=== PATIENT | female | born 1960 | race Caucasian/White ===

== ENCOUNTER 2017-06-14 10:36 | Emergency (ER) | payer OTHER ==
[2017-06-14 10:54] VITALS: BP 130/72
[2017-06-14 12:18] LABS: BASOPHILS # (AUTO) 0.1 10^3/uL (0.0-0.1); BASOPHILS % (AUTO) 0.6 %; EOSINOPHILS # (AUTO) 0.1 10^3/uL (0.0-0.7); EOSINOPHILS % (AUTO) 0.5 %; HCT - HEMATOCRIT 42.2 % (37.0-47.0); HGB - HEMOGLOBIN 13.8 g/dL (12.0-16.0); LYMPHOCYTES # (AUTO) 2.4 10^3/uL (1.5-3.5); LYMPHOCYTES % (AUTO) 14.7 %; MEAN CORPUSCULAR HGB CONC 32.8 g/dL (32.0-36.0); MEAN CORPUSCULAR VOLUME 82.4 fL (81.0-99.0); MEAN PLATELET VOLUME 8.5 fL (7.9-10.8); MONOCYTES # (AUTO) 1.1 10^3/uL (0.0-1.0); MONOCYTES % (AUTO) 6.4 %; NEUTROPHILS # (AUTO) 12.7 10^3/uL (1.5-6.6); NEUTROPHILS % (AUTO) 77.8 %; RED BLOOD COUNT 5.12 10^6/uL (4.20-5.40); RED CELL DISTRIBUTION WIDTH 14.5 % (12.0-15.0); UNCORRECTED WHITE BLOOD COUNT 16.4 x10^3/uL; WHITE BLOOD COUNT 16.4 x10^3/uL (4.8-10.8)
[2017-06-14 12:33] LABS: ALBUMIN/GLOBULIN RATIO 0.9 (1.0-2.2); BILIRUBIN,TOTAL 0.6 mg/dL (0.2-1.0); CALCIUM 9.1 mg/dL (8.5-10.3); CREATININE 0.7 mg/dL (0.4-1.0); POTASSIUM 3.9 mmol/L (3.5-5.0)
[2017-06-14] MEDS ORDERED: ceFAZolin 1 GM VIAL IM STA (12:35)
--- NOTE | 2017-06-14 12:37 | ED Physician Documentation ---
History of Present Illness - Stated complaint Stated Complaint: LT LEG PX/REDNESS - Chief complaint Chief Complaint: Ext Problem - History obtained from History obtained from: Patient - History of Present Illness Timing: Other (56-year-old woman with long-standing diabetes developed redness and swelling and pain of the left foot, ankle and calf overnight with generalized malaise and some chills but no measured fevers. No nausea, vomiting , shortness of breath, cough, or chest pain.) Review of Systems Constitutional: reports: Chills, Myalgias. denies: Fever Cardiac: denies: Chest pain / pressure, Palpitations Respiratory: denies: Dyspnea, Cough PD PAST MEDICAL HISTORY - Past Medical History Past Medical History: Yes Endocrine/Autoimmune: Type 2 diabetes : Other Other Past Medical History: Neuropathy, Kidney infections, L inguinal hernia, R large cyst on ovary - Past Surgical History Past Surgical History: Yes HEENT: Cataracts, Tonsil/Adenoidectomy - Present Medications Home Medications: Ambulatory Orders Medication Instructions Recorded Confirmed Amitriptyline [Elavil] 25 mg PO DAILY 06/14/17 06/14/17 Amox/Clav 875/125 [Augmentin] 1 each PO Q12H #20 tablet 06/14/17 Ascorbic Acid [Vitamin C] 1,000 mg PO DAILY 06/14/17 06/14/17 Aspirin 81 mg PO DAILY 06/14/17 06/14/17 Insulin Aspart [NovoLOG] 16 - 30 unit SQ TID 06/14/17 06/14/17 Insulin Glargine [Lantus Solostar] 84 unit SQ BID 06/14/17 06/14/17 Iron Pill 06/14/17 [place]-3/Dha/Epa/Fish Oil [Fish Oil 1 tab PO DAILY 06/14/17 06/14/17 1,000 mg Softgel] Omeprazole 40 mg PO DAILY 06/14/17 06/14/17 Senna [Senokot] 8.6 mg PO ONCE 06/14/17 06/14/17 Simvastatin 1 tab PO DAILY 06/14/17 06/14/17 Telmisartan/Hydrochlorothiazid 1 each PO DAILY 06/14/17 06/14/17 [Micardis Hct 80-25 mg Tablet] metFORMIN [Glucophage] 2,000 mg PO DAILY 06/14/17 06/14/17 - Allergies Allergies/Adverse Reactions: Allergies Allergy/AdvReac Type Severity Reaction Status Date / Time No Known Drug Allergies Allergy Verified 06/14/17 10:54 - Social History Does the pt smoke?: No Smoking Status: Never smoker Does the pt drink ETOH?: No Does the pt have substance abuse?: No - Immunizations Immunizations are current?: Yes - POLST Patient has POLST: No PD ED PE NORMAL - Vitals Vital signs reviewed: Yes - General General: Alert and oriented X 3, No acute distress - Cardiac Cardiac: RRR, No murmur - Respiratory Respiratory: No respiratory distress, Clear bilaterally - Extremities Extremities: Other (She has cellulitis that seems to be emanating from the top of the foot near the toes to mid calf. There is some tenderness but not terribly so. There is no pain out of proportion to exam or crepitance. There is a slightly foul smell from the toes but no open areas or wounds.) - Neuro Neuro: Alert and oriented X 3, Normal speech Results - Vitals Vitals: Vital Signs - 24 hr 06/14/17 10:49 Temperature 36.6 C Heart Rate 99 Respiratory 16 Rate Blood Pressure 130/72 O2 Saturation 98 Oxygen O2 Source Room air - Labs Labs: Laboratory Tests 06/14/17 06/14/17 06/14/17 12:08 12:14 12:14 WBC 16.4 H RBC 5.12 Hgb 13.8 Hct 42.2 MCV 82.4 MCH 27.0 MCHC 32.8 RDW 14.5 Plt Count 196 MPV 8.5 Neut # 12.7 H Lymph # 2.4 [place] # 1.1 H Eos # 0.1 Baso # 0.1 Absolute Nucleated RBC 0.00 Nucleated RBC % 0.0 Sodium 137 Potassium 3.9 Chloride 92 L Carbon Dioxide 31 Anion Gap 14.0 H BUN 15 Creatinine 0.7 Estimated GFR (MDRD) 87 L Glucose 202 H POC Whole Bld Glucose 158 H Calcium 9.1 Total Bilirubin 0.6 AST 15 ALT 29 Alkaline Phosphatase 87 Total Protein 7.0 Albumin 3.4 Globulin 3.6 Albumin/Globulin Ratio 0.9 L Lipase 19 L PD MEDICAL DECISION MAKING - ED course ED course: 56-year-old woman with cellulitis of the left leg. The examination is inconsistent with DVT. She was given 2 g of Ancef IM here and a prescription for Augmentin. The patient and family were counseled as to the diagnosis and need for follow- up. I counseled the patient with regard to signs and symptoms that would necessitate an urgent reevaluation in the emergency department. They understand they are welcome to return at any time if worse or if not improving as expected. This document was made in part using voice recognition software. While efforts are made to proofread this documents, sound alike and grammatical errors may occur. Departure - Departure Disposition: 01 Home, Self Care Clinical Impression: Cellulitis Qualifiers: Site of cellulitis: extremity Site of cellulitis of extremity: lower extremity Laterality: left Qualified Code(s): L03.116 - Cellulitis of left lower limb Condition: Good Record reviewed to determine appropriate education?: Yes Instructions: Cellulitis Dc Prescriptions: Amox/Clav 875/125 [Augmentin] 1 each PO Q12H #20 tablet Comments: Follow-up with your doctor in 2 days, return for high fevers, if worse or not better.
[2017-06-14] MEDS ORDERED: ceFAZolin 1 GM VIAL ONE (12:45)
[2017-06-14] MEDS ORDERED: WATER FOR INJECTION,STERILE 10 ML ONE (12:45)
== END 2017-06-14 12:52 | disposition home or self-care (01) ==
LOC: ED 10:36
DX: L03.116 Cellulitis of left lower limb (principal); E11.610 Type 2 diabetes mellitus with diabetic neuropathic arthropathy; Z79.4 Long term (current) use of insulin; Z79.82 Long term (current) use of aspirin
CPT/HCPCS: 36415; 80053; 83690; 85025; 96372; 99283

== ENCOUNTER 2017-06-16 15:39 | Inpatient (IN) | payer OTHER ==
[2017-06-16] MEDS ORDERED: SODIUM CHLORIDE 0.9% 1,000 ML IV ONE (15:52)
[2017-06-16] MEDS ORDERED: VANCOMYCIN INJ 2 GM in SODIUM CHLORIDE 0.9% 500 ML IV STA (15:53)
--- NOTE | 2017-06-16 15:54 | ED Physician Documentation ---
History of Present Illness - Stated complaint Stated Complaint: FOOT PX - Chief complaint Chief Complaint: Ext Problem - History obtained from History obtained from: Patient - History of Present Illness Timing: Other (This is a long-standing diabetic who I saw 2 days ago for left leg cellulitis. She was administered Ancef here and Augmentin to go which she has been taking with minimal to no side effects. Since then her cellulitis has progressed and she is gotten more of a fluid collection on the top of the left foot. She had chills last night.) Review of Systems Ten Systems: 10 systems reviewed and negative Constitutional: reports: Chills. denies: Fever Throat: reports: Reviewed and negative Cardiac: reports: Reviewed and negative Respiratory: reports: Reviewed and negative PD PAST MEDICAL HISTORY - Past Medical History Past Medical History: Yes Endocrine/Autoimmune: Type 2 diabetes : Other - Past Surgical History Past Surgical History: Yes HEENT: Cataracts, Tonsil/Adenoidectomy - Present Medications Home Medications: Ambulatory Orders Medication Instructions Recorded Confirmed Amitriptyline [Elavil] 25 mg PO DAILY 06/14/17 06/14/17 Amox/Clav 875/125 [Augmentin] 1 each PO Q12H #20 tablet 06/14/17 Ascorbic Acid [Vitamin C] 1,000 mg PO DAILY 06/14/17 06/16/17 Aspirin 81 mg PO DAILY 06/14/17 06/16/17 Insulin Aspart [NovoLOG] 16 - 30 unit SQ TID 06/14/17 06/16/17 Insulin Glargine [Lantus Solostar] 84 unit SQ BID 06/14/17 06/16/17 Iron Pill 06/14/17 [place]-3/Dha/Epa/Fish Oil [Fish Oil 1 tab PO DAILY 06/14/17 06/16/17 1,000 mg Softgel] Omeprazole 40 mg PO DAILY 06/14/17 06/16/17 Senna [Senokot] 8.6 mg PO ONCE 06/14/17 06/16/17 Simvastatin 1 tab PO DAILY 06/14/17 06/16/17 Telmisartan/Hydrochlorothiazid 1 each PO DAILY 06/14/17 06/16/17 [Micardis Hct 80-25 mg Tablet] metFORMIN [Glucophage] 2,000 mg PO DAILY 06/14/17 06/16/17 - Allergies Allergies/Adverse Reactions: Allergies Allergy/AdvReac Type Severity Reaction Status Date / Time No Known Drug Allergies Allergy Verified 06/16/17 15:45 - Social History Does the pt smoke?: No Smoking Status: Never smoker Does the pt drink ETOH?: No Does the pt have substance abuse?: No - Family History Family history: reports: Non contributory - Immunizations Immunizations are current?: Yes - POLST Patient has POLST: No PD ED PE NORMAL - Vitals Vital signs reviewed: Yes (Tachycardic, hypertensive) - General General: Alert and oriented X 3, No acute distress - HEENT HEENT: PERRL, EOMI - Neck Neck: Supple, no meningeal sign, No bony TTP - Cardiac Cardiac: RRR, No murmur - Respiratory Respiratory: No respiratory distress, Clear bilaterally - Abdomen Abdomen: Soft, Non tender - Extremities Extremities: Other (The redness of the calf is actually improved somewhat, but the redness on the top of the left foot is much worse and there is now a fluid collection that is extensive between the first and second toes of the left foot. ) - Neuro Neuro: Alert and oriented X 3, Normal speech - Psych Psych: Normal mood, Normal affect Results - Vitals Vitals: Vital Signs - 24 hr 06/16/17 15:44 Temperature 36.7 C Heart Rate 117 H Respiratory 18 Rate Blood Pressure 155/70 H O2 Saturation 96 Oxygen O2 Source Room air Procedures - Abscess I&D (location) Left foot Preparation: Chlorhexadine Incision: Incised with scalpel, Culture obtained Other: Pt tolerated well, Dressing applied PD MEDICAL DECISION MAKING - ED course ED course: 56-year-old woman with bullous cellulitis, bullae between the first and second toes was incised for a culture. She is placed on vancomycin and I spoke with Dr. Pina for admission given that she has failed outpatient treatments and is still tachycardic, we spoke at 3:55 PM. Departure - Departure Disposition: 66 [facility] DC/Xfer Clinical Impression: Cellulitis Qualifiers: Site of cellulitis: extremity Site of cellulitis of extremity: lower extremity Laterality: left Qualified Code(s): L03.116 - Cellulitis of left lower limb Condition: Stable
[2017-06-16 16:24] LABS: BASOPHILS # (AUTO) 0.1 10^3/uL (0.0-0.1); BASOPHILS % (AUTO) 0.5 %; EOSINOPHILS # (AUTO) 0.2 10^3/uL (0.0-0.7); EOSINOPHILS % (AUTO) 1.3 %; HCT - HEMATOCRIT 39.9 % (37.0-47.0); HGB - HEMOGLOBIN 12.7 g/dL (12.0-16.0); LYMPHOCYTES % (AUTO) 13.2 %; MEAN CORPUSCULAR HEMOGLOBIN 26.8 pg (27.0-31.0); MEAN CORPUSCULAR HGB CONC 31.9 g/dL (32.0-36.0); MEAN CORPUSCULAR VOLUME 83.9 fL (81.0-99.0); MEAN PLATELET VOLUME 8.4 fL (7.9-10.8); MONOCYTES # (AUTO) 1.2 10^3/uL (0.0-1.0); MONOCYTES % (AUTO) 7.9 %; NEUTROPHILS # (AUTO) 11.7 10^3/uL (1.5-6.6); NEUTROPHILS % (AUTO) 77.1 %; RED BLOOD COUNT 4.75 10^6/uL (4.20-5.40); RED CELL DISTRIBUTION WIDTH 14.4 % (12.0-15.0); UNCORRECTED WHITE BLOOD COUNT 15.2 x10^3/uL; WHITE BLOOD COUNT 15.2 x10^3/uL (4.8-10.8)
[2017-06-16] MEDS ORDERED: ONDANSETRON ODT 4 MG TABLET TL PRN (16:31)
[2017-06-16] MEDS ORDERED: TEMAZEPAM 15 MG CAPSULE PO PRN (16:31)
[2017-06-16] MEDS ORDERED: ACETAMINOPHEN 325 MG TABLET PO PRN (16:31)
[2017-06-16] MEDS ORDERED: HYDROcod/ACETAM 5/325 MG TABLET PO PRN (16:31)
[2017-06-16] MEDS ORDERED: SODIUM CHLORIDE FLUSH 0.9% 10 ML SYRINGE IVP PRN (16:31)
[2017-06-16 16:37] LABS: ALBUMIN/GLOBULIN RATIO 0.8 (1.0-2.2); BILIRUBIN,TOTAL 0.4 mg/dL (0.2-1.0); CALCIUM 8.1 mg/dL (8.5-10.3); CREATININE 0.8 mg/dL (0.4-1.0); POTASSIUM 3.8 mmol/L (3.5-5.0); TOTAL PROTEIN 6.6 g/dL (6.7-8.2)
[2017-06-16] MEDS ORDERED: SENNA 8.6 MG TABLET PO SCH (17:00)
[2017-06-16] MEDS ORDERED: INSULIN ASPART 300 UNIT/3 ML PEN SUBQ SCH (17:00)
--- NOTE | 2017-06-16 19:06 | HISTORY & PHYSICAL EXAMINATION ---
Chief Complaint - Chief Complaint Chief Complaint: LLE cellulitis History of Present Illness - Admitted From Admitted From:: ED - History Obtained From Records Reviewed: yes History obtained from: chart review, patient Exam Limitations: none - History of Present Illness HPI Comment/Other: Nicci Otto is a morbidly-obese 56 year old female who suffers from long- standing diabetes. She most recently was seen in the ED 2 days ago for left leg cellulitis. She was administered Ancef and Augmentin to go which she has been taking with minimal to no side effects. Since then her cellulitis has progressed and she is gotten more of a fluid collection on the top of the left foot. She admits to chills, nausea with vomiting, headache, generalized malaise and diarrhea that developed soon after returning home from the ED the first time. Once in the ED the MD lanced the skin on top of her left foot between the first and second toe. A wound culture was sent to lab and is pending. She was placed on vancomycin IV and is admitted to the medical floor for further IV therapy, blood sugar control, and prevention of wound progression. History - Past Medical History Cardiovascular: reports: None, Peripheral Vascular Disease, Murmur Neuro: reports: Headache/migraine, Peripheral neuropathy Endocrine/Autoimmune: reports: Type 2 diabetes [employer]: reports: Ovarian cysts (Plan for surgery in July-pending HgA1C) : reports: Other (stable left inguinal hernia) HEENT: reports: Chronic sinusitis, Other (acute fluid accumulation left greater than right tympanic membrane.) Psych: reports: None Musculoskeletal: reports: Fatigue Derm: reports: None MRSA Hx?: No - Past Surgical History General: reports: Colonoscopy, EGD HEENT: reports: Cataracts, Tonsil/Adenoidectomy - Family & Social History Family History: Mother: Alive and Well, Cancer, Diabetes, Type 2 (4 living brothers ALL with diabetes), Father: , CAD, Brother: Diabetes, Type 2 Living arrangement: At home Living Situation: With spouse/s.o. 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 - Substance History Use: Uses substance without health or social issues: NONE Abuse: Recurrent use of substance despite neg consequences: NONE Dependence: Experiences withdrawal or developed tolerances: NONE - POLST Patient has POLST: No POLST Status: Full Code Meds/Allgy - Home Medications Home Medications: Ambulatory Orders Medication Instructions Recorded Confirmed Amitriptyline [Elavil] 25 mg PO DAILY 06/14/17 06/16/17 Amox/Clav 875/125 [Augmentin] 1 each PO Q12H #20 tablet 06/14/17 06/16/17 Ascorbic Acid [Vitamin C] 1,000 mg PO DAILY 06/14/17 06/16/17 Aspirin 81 mg PO DAILY 06/14/17 06/16/17 Insulin Aspart [NovoLOG] 16 - 30 unit SQ TID 06/14/17 06/16/17 Insulin Glargine [Lantus Solostar] 84 unit SQ BID 06/14/17 06/16/17 Iron Pill 06/14/17 [place]-3/Dha/Epa/Fish Oil [Fish Oil 1 tab PO DAILY 06/14/17 06/16/17 1,000 mg Softgel] Omeprazole 40 mg PO DAILY 06/14/17 06/16/17 Senna [Senokot] 8.6 mg PO ONCE 06/14/17 06/16/17 Simvastatin 1 tab PO DAILY 06/14/17 06/16/17 Telmisartan/Hydrochlorothiazid 1 each PO DAILY 06/14/17 06/16/17 [Micardis Hct 80-25 mg Tablet] metFORMIN [Glucophage] 2,000 mg PO DAILY 06/14/17 06/16/17 - Allergies Allergies/Adverse Reactions: Allergies Allergy/AdvReac Type Severity Reaction Status Date / Time No Known Drug Allergies Allergy Verified 06/16/17 15:45 Review of Systems - Constitutional Constitutional: reports: Fatigue, Fever, Chills, Malaise, Weakness, Poor appetite - Eyes Eyes: reports: Corrective lenses - Ears, Nose & Throat Ears, Nose & Throat: reports: Ear pain, Postnasal drainage, Sore throat - Gastrointestinal Gastrointestinal: reports: Abdominal distention, Diarrhea, Change in bowel habits, Nausea, Vomiting, Bloating, Poor appetite - Integumentary Integumentary: reports: Other (LLE cellulitis) - Neurological Neurological: reports: General weakness, Headache - All Other Systems All Other Systems: reports: Reviewed and negative Exam - Vital Signs Reviewed Vital Signs: Yes Vital Signs: Vital Signs x48h Temp Pulse Resp BP Pulse Ox 06/16/17 17:00 37.2 C 94 16 138/60 H 97 - Physical Exam General Appearance: positive: No acute distress, Alert Eyes Bilateral: positive: Normal inspection ENT: positive: ENT inspection nml, Pharynx nml, Dry mucous membranes, Other ( fluid noted left greater than right behind tympanic membrane using otoscope.) Neck: positive: Nml inspection, Thyroid nml Respiratory: positive: Chest non-tender, No respiratory distress, Breath sounds nml Cardiovascular: positive: Regular rate & rhythm, No gallop, Systolic murmur Peripheral Pulses: positive: 1+ Abdomen: positive: Tenderness, Hepatomegaly, Splenomegaly, Other (obese) Back: positive: Nml inspection Skin: positive: Color nml, No rash, Warm, Dry Extremities: positive: Pedal edema, Calf tenderness (left low leg), Joint swelling Neurologic/Psychiatric: positive: Oriented x3, CN's nml (2-12), Motor nml, Sensation nml, Depressed mood/affect Reflexes: Bicep (R): 4+, Bicep (L): 4+ Conclusion/Plan - Problem List (1) Cellulitis of left lower extremity Conclusion/Plan: 4 days ago patient was in her bathroom and noticed her leg to appear "sunburnt" . She has a white floor, so this really stood out to her. The next day she came to our ED, was treated with antibiotics and sent home to finish with oral antibiotics. Started having fever/chills, headache, increased LLE pain and now noticed a blister forming on the anterior aspect of foot between the largest toe and the second toe. Plan: Treat aggressively with IV antibiotics, wound culture pending, wound care consult. (2) Abscess of left foot excluding toes Conclusion/Plan: Blister like formation noted on left foot between great toe and second toes, so lanced with fluid drainage. Plan: Awaiting culture results. (3) Diabetes mellitus type 2 with complications Conclusion/Plan: Diagnosed at age 25 years. Likely related to PCOS. Sugars at home have been reported greater than 300. HgA1C is said to be ~9. Plan: Diabetes education before discharge. Monitor and control blood sugars per nursing. (4) Allergic sinusitis Conclusion/Plan: Patient complains of left ear pain that started about the same time as her chief complaint. Upon exam with otoscope, fluid is noted behind bilateral tympanic membranes. Plan: Afrin nasal spray for the next 3 days, [place] PO started for the AM. (5) History of PCOS Conclusion/Plan: Patient has had this disease since early adult sin. She notes that she has a current ovarian cyst that needs to be removed soon. She also admits to infrequent spotting related to this cyst. No pain with palpation. Plan: Monitor for signs of explosion. Control pain. Encourage activity. (6) Morbid obesity with BMI of 45.0-49.9, adult Conclusion/Plan: Patient notes that her weight has been a life long struggle. Plan: May consider dietary consult before discharge. A low carb diet has been ordered. Greater than 30 minutes was spent on this admission during [id number] exam and wound exploration. - Lab Results Lab results reviewed: Yes Fish Bones: 06/16/17 16:13 06/16/17 16:13 - Diagnostic Imaging Results Diagnostic Imaging Results: positive: Prelim report reviewed - EKG Results EKG Interpreted Independently: Yes Issues/Core Measures - Anticipated LOS Anticipated Stay Length: 2 or more midnights - DVT/VTE - Prophylaxis VTE/DVT Device ordered at admit?: No Not Ordered - Medical Reason: Contraindicated VTE/DVT Prophylaxis med ordered at admit?: Yes - Stroke - Rehab Assessment Rehab services assessment to be ordered?: No Not Ordered - Medical Reason: Not indicated - AMI - Statin at Admit Aspirin Prescribed on Admit: No Not Ordered - Medical Reason: Not indicated
[2017-06-16] MEDS: INSULIN ASPART 300 UNIT/3 ML PEN SUBQ SCH (21:54)
[2017-06-16] MEDS: INSULIN GLARGINE 300 UNIT/3 ML PEN SUBQ SCH (21:55)
[2017-06-16] MEDS: SODIUM CHLORIDE FLUSH 0.9% 10 ML SYRINGE IVP SCH (21:55)
[2017-06-16] MEDS: OXYMETAZOLINE NASAL SPRAY NAS SCH (22:41)
[2017-06-16] MEDS ORDERED: PIPERACILLIN/TAZOBACTAM 3.375 GM in SODIUM CHLORIDE 0.9% MINIBAG 100 ML IV SCH ×2 (23:00→23:30)
[2017-06-17] MEDS: SODIUM CHLORIDE 0.9% 1,000 ML IV SCH ×2 (00:02→10:42)
[2017-06-17] MEDS: PIPERACILLIN/TAZOBACTAM 3.375 GM in SODIUM CHLORIDE 0.9% MINIBAG 100 ML IV SCH ×3 (02:42→17:22)
[2017-06-17] MEDS ORDERED: VANCOMYCIN PER PHARMACY 0.1 GM in SODIUM CHLORIDE 0.9% 250 ML IV SCH (05:00)
[2017-06-17 06:00] LABS: BASOPHILS # (AUTO) 0.1 10^3/uL (0.0-0.1); BASOPHILS % (AUTO) 0.5 %; EOSINOPHILS # (AUTO) 0.2 10^3/uL (0.0-0.7); EOSINOPHILS % (AUTO) 1.8 %; HCT - HEMATOCRIT 37.7 % (37.0-47.0); HGB - HEMOGLOBIN 12.1 g/dL (12.0-16.0); LYMPHOCYTES # (AUTO) 2.3 10^3/uL (1.5-3.5); LYMPHOCYTES % (AUTO) 18.9 %; MEAN CORPUSCULAR HEMOGLOBIN 26.8 pg (27.0-31.0); MEAN CORPUSCULAR HGB CONC 32.1 g/dL (32.0-36.0); MEAN CORPUSCULAR VOLUME 83.5 fL (81.0-99.0); MEAN PLATELET VOLUME 8.1 fL (7.9-10.8); MONOCYTES % (AUTO) 8.3 %; NEUTROPHILS # (AUTO) 8.5 10^3/uL (1.5-6.6); NEUTROPHILS % (AUTO) 70.5 %; RED BLOOD COUNT 4.51 10^6/uL (4.20-5.40); RED CELL DISTRIBUTION WIDTH 14.8 % (12.0-15.0)
[2017-06-17 06:12] LABS: ALBUMIN/GLOBULIN RATIO 0.7 (1.0-2.2); BILIRUBIN,TOTAL 0.5 mg/dL (0.2-1.0); CALCIUM 8.1 mg/dL (8.5-10.3); CREATININE 0.7 mg/dL (0.4-1.0); POTASSIUM 3.3 mmol/L (3.5-5.0); TOTAL PROTEIN 6.3 g/dL (6.7-8.2)
[2017-06-17] MEDS: SODIUM CHLORIDE FLUSH 0.9% 10 ML SYRINGE IVP SCH ×4 (06:16→21:13)
[2017-06-17 06:21] LABS: HEMOGLOBIN A1C 0.98 g/dL
[2017-06-17] MEDS: VANCOMYCIN INJ 2 GM in SODIUM CHLORIDE 0.9% 500 ML IV SCH ×2 (06:43→17:16)
[2017-06-17] MEDS ORDERED: NON FORMULARY MED (Omeprazole [Omeprazole] 40 MG) PO SCH (09:00)
[2017-06-17] MEDS: INSULIN ASPART 300 UNIT/3 ML PEN SUBQ SCH ×4 (09:19→21:06)
[2017-06-17] MEDS: AMITRIPTYLINE 25 MG TABLET PO SCH (09:20)
[2017-06-17] MEDS: ENOXAPARIN 40 MG/0.4 ML SYRINGE SUBQ SCH (09:20)
[2017-06-17] MEDS: ASPIRIN CHEW 81 MG TABLET PO SCH (09:20)
[2017-06-17] MEDS: FAMOTIDINE 20 MG TABLET PO SCH (09:20)
[2017-06-17] MEDS: FEXOFENADINE 60 MG TABLET PO SCH ×2 (09:20→09:23)
[2017-06-17] MEDS: POLYETHYLENE GLYCOL 3350 17 GM PACKET PO SCH (09:21)
[2017-06-17] MEDS: PANTOPRAZOLE 40 MG VIAL IV SCH (09:21)
[2017-06-17] MEDS: INSULIN GLARGINE 300 UNIT/3 ML PEN SUBQ SCH ×2 (09:22→21:08)
[2017-06-17] MEDS: OXYMETAZOLINE NASAL SPRAY NAS SCH ×2 (09:22→21:13)
[2017-06-17] MEDS ORDERED: GADOBUTROL 15 MMOL/15 ML VIAL ONE (10:05)
--- NOTE | 2017-06-17 11:44 | PROVIDER PROGRESS NOTE ---
Subjective - Prog Note Date Prog Note Date: 06/17/17 Prog Note Time: 11:41 - Subjective Pt reports feeling: No change Subjective: Nicci admits to a poor nights sleep. She denies SOB, chest pain, N/V or a new cough. Current Medications - Current Medications Current Medications: Active Medications Acetaminophen (Tylenol) 650 mg PO Q4HR PRN PRN Reason: Pain 1 to 4 Acetaminophen/Hydrocodone Bitart ([place] 5/325) 1 tab PO Q4HR PRN PRN Reason: Pain 5 to 7 Amitriptyline HCl (Elavil) 25 mg PO DAILY [facility] Last Admin: 06/17/17 09:20 Dose: 25 mg Aspirin ([place] Aspirin) 81 mg PO DAILY [facility] Last Admin: 06/17/17 09:20 Dose: 81 mg Enoxaparin Sodium (Lovenox) 40 mg SUBQ DAILY [facility] Last Admin: 06/17/17 09:20 Dose: 40 mg Famotidine (Pepcid) 20 mg PO DAILY [facility] Last Admin: 06/17/17 09:20 Dose: 20 mg Fexofenadine HCl (Malgorzata) 60 mg PO DAILY [facility] Last Admin: 06/17/17 09:23 Dose: Not Given Piperacillin Sod/Tazobactam (Sod 3.375 gm/ Sodium Chloride) 100 mls @ 25 mls/ hr IV Q8H [facility] Last Infusion: 06/17/17 06:51 Dose: Infused Vancomycin HCl 2 gm/ Sodium (Chloride) 500 mls @ 250 mls/hr IV Q12H [facility] Last Infusion: 06/17/17 08:45 Dose: Infused Insulin Aspart (Novolog) 2 - 10 unit SUBQ 0800,1200,1700,2100 [facility] PRN Reason: Protocol Last Admin: 06/17/17 09:19 Dose: Not Given Insulin Glargine (Lantus Solostar) 84 unit SUBQ BID [facility] Last Admin: 06/17/17 09:22 Dose: 84 unit Ondansetron HCl (Zofran Odt) 4 mg TL Q6HR PRN PRN Reason: Nausea / Vomiting Oxymetazoline HCl (Afrin) 2 sprays BARRY BID [facility] Stop: 06/19/17 22:59 Last Admin: 06/17/17 09:22 Dose: 1 spr Pantoprazole Sodium (Protonix) 80 mg IV DAILY [facility] Last Admin: 06/17/17 09:21 Dose: 80 mg Polyethylene Glycol (Miralax) 17 gm PO DAILY [facility] Last Admin: 06/17/17 09:21 Dose: Not Given Sodium Chloride (Normal Saline Flush 0.9%) 10 ml IVP PRN PRN PRN Reason: NEEDED PER PROVIDER ORDERS Sodium Chloride (Normal Saline Flush 0.9%) 10 ml IVP Q8HR [facility] Last Admin: 06/17/17 06:16 Dose: Not Given Temazepam (Restoril) 15 mg PO QPM PRN PRN Reason: Insomnia Amitriptyline [Elavil] 25 mg PO DAILY 06/14/17 Ascorbic Acid [Vitamin C] 1,000 mg PO DAILY 06/14/17 Aspirin 81 mg PO DAILY 06/14/17 Insulin Aspart [NovoLOG] 16 - 30 unit SQ TID 06/14/17 Insulin Glargine [Lantus Solostar] 84 unit SQ BID 06/14/17 Iron Pill 06/14/17 [place]-3/Dha/Epa/Fish Oil [Fish Oil 1,000 mg Softgel] 1 tab PO DAILY 06/14/17 Omeprazole 40 mg PO DAILY 06/14/17 Senna [Senokot] 8.6 mg PO ONCE 06/14/17 Simvastatin 1 tab PO DAILY 06/14/17 Telmisartan/Hydrochlorothiazid [Micardis Hct 80-25 mg Tablet] 1 each PO DAILY metFORMIN [Glucophage] 2,000 mg PO DAILY 06/14/17 Objective - Vital Signs/Intake & Output Reviewed Vital Signs: Yes Vital Signs: Vital Signs x48h Temp Pulse Resp BP Pulse Ox 06/17/17 08:54 37.3 C 98 16 140/61 H 95 06/17/17 05:00 37.3 C 99 16 146/58 H 95 Intake & Output: Intake & Output 06/14/17 06/15/17 06/16/17 06/17/17 23:59 23:59 23:59 23:59 Intake Total 1077.5 2713.500 Balance 1077.5 2713.500 - Objective General Appearance: positive: No acute distress, Alert, Mild distress Eyes Bilateral: positive: Normal inspection ENT: positive: ENT inspection nml, Pharynx nml, No signs of dehydration Neck: positive: Nml inspection, Thyroid nml, No JVD, Trachea midline Respiratory: positive: Chest non-tender, No respiratory distress, Breath sounds nml Cardiovascular: positive: Regular rate & rhythm, No murmur, No gallop Peripheral Pulses: 2+ Radial (R), 2+ Radial (L) Abdomen: positive: Non-tender, Nml bowel sounds, Guarding, Rebound, Hepatomegaly Back: positive: Nml inspection Skin: positive: Color nml, No rash, Warm, Dry Extremities: positive: Non-tender, Full ROM, Nml appearance, Pedal edema, Other (LLE redness, edema, wound with no change in condition, infected.) Neurologic/Psychiatric: positive: Oriented x3, CN's nml (2-12), Motor nml, Sensation nml, Depressed mood/affect Reflexes: Bicep (R): 3+, Bicep (L): 3+ - Lab Results Fish Bones: 06/19/17 15:32 06/19/17 21:00 Other Labs: Lab Results x24hrs 06/17/17 06/17/17 06/17/17 Range/Units 07:29 05:27 05:27 WBC 12.0 H (4.8-10.8) x10^3/uL RBC 4.51 (4.20-5.40) 10^6/uL Hgb 12.1 (12.0-16.0) g/dL Hct 37.7 (37.0-47.0) % MCV 83.5 (81.0-99.0) fL MCH 26.8 L (27.0-31.0) pg MCHC 32.1 (32.0-36.0) g/dL RDW 14.8 (12.0-15.0) % Plt Count 232 (130-450) 10^3/uL MPV 8.1 (7.9-10.8) fL Neut # 8.5 H (1.5-6.6) 10^3/uL Lymph # 2.3 (1.5-3.5) 10^3/uL [place] # 1.0 (0.0-1.0) 10^3/uL Eos # 0.2 (0.0-0.7) 10^3/uL Baso # 0.1 (0.0-0.1) 10^3/uL Absolute Nucleated RBC 0.01 x10^3/uL Nucleated RBC % 0.0 /100WBC Sodium 139 (135-145) mmol/L Potassium 3.3 L (3.5-5.0) mmol/L Chloride 100 L (101-111) mmol/L Carbon Dioxide 31 (21-32) mmol/L Anion Gap 8.0 (6-13) BUN 9 (6-20) mg/dL Creatinine 0.7 (0.4-1.0) mg/dL Estimated GFR (MDRD) 87 L (>89) Glucose 112 H (70-100) mg/dL POC Whole Bld Glucose 95 (70 - 100) mg/dL Glycated Hemoglobin (4.6-6.2) % Estim Average Glucose (70-100) Calcium 8.1 L (8.5-10.3) mg/dL Total Bilirubin 0.5 (0.2-1.0) mg/dL AST 10 (10-42) IU/L ALT 15 (10-60) IU/L Alkaline Phosphatase 84 (42-121) IU/L Total Protein 6.3 L (6.7-8.2) g/dL Albumin 2.6 L (3.2-5.5) g/dL Globulin 3.7 (2.1-4.2) g/dL Albumin/Globulin Ratio 0.7 L (1.0-2.2) 06/17/17 06/16/17 06/16/17 Range/Units 05:27 20:30 17:27 WBC (4.8-10.8) x10^3/uL RBC (4.20-5.40) 10^6/uL Hgb (12.0-16.0) g/dL Hct (37.0-47.0) % MCV (81.0-99.0) fL MCH (27.0-31.0) pg MCHC (32.0-36.0) g/dL RDW (12.0-15.0) % Plt Count (130-450) 10^3/uL MPV (7.9-10.8) fL Neut # (1.5-6.6) 10^3/uL Lymph # (1.5-3.5) 10^3/uL [place] # (0.0-1.0) 10^3/uL Eos # (0.0-0.7) 10^3/uL Baso # (0.0-0.1) 10^3/uL Absolute Nucleated RBC x10^3/uL Nucleated RBC % /100WBC Sodium (135-145) mmol/L Potassium (3.5-5.0) mmol/L Chloride (101-111) mmol/L Carbon Dioxide (21-32) mmol/L Anion Gap (6-13) BUN (6-20) mg/dL Creatinine (0.4-1.0) mg/dL Estimated GFR (MDRD) (>89) Glucose (70-100) mg/dL POC Whole Bld Glucose 234 H 222 H (70 - 100) mg/dL Glycated Hemoglobin 9.1 H (4.6-6.2) % Estim Average Glucose 214 H (70-100) Calcium (8.5-10.3) mg/dL Total Bilirubin (0.2-1.0) mg/dL AST (10-42) IU/L ALT (10-60) IU/L Alkaline Phosphatase (42-121) IU/L Total Protein (6.7-8.2) g/dL Albumin (3.2-5.5) g/dL Globulin (2.1-4.2) g/dL Albumin/Globulin Ratio (1.0-2.2) - Diagnostic Imaging Diagnostic Imaging Results: positive: Prelim report reviewed Assessment/Plan - Problem List (1) Cellulitis of left lower extremity Impression: In the days prior to this admission, patient was in her bathroom and noticed her leg to appear "sunburnt". She has a white floor, so this really stood out to her. The next day she came to our ED, was treated with antibiotics and sent home to finish with oral antibiotics. Started having fever/chills, headache, increased LLE pain and now noticed a blister forming on the anterior aspect of foot between the largest toe and the second toe. Plan: MRI of left foot showed a blacked out area that was noted by tech. Radiologist suggested an x-ray for possible metal object interference. This surprisingly showed sewing needles, so Dr. Greene-Ortho surgery took patient to OR today, with a successful removal with new wound culture sent, sensitivities are pending. Continue IV antibiotics. (2) Abscess of left foot excluding toes Impression: Blister like formation noted on left foot between great toe and second toes, so lanced with fluid drainage. Culture results showed staph aureus. Plan: Continue with dressing changes, now post-op. (4) Allergic sinusitis Impression: (Patient complains of left ear pain that started about the same time as her chief complaint. Upon exam with otoscope, fluid is noted behind bilateral tympanic membranes. Plan: Afrin nasal spray for the next 3 days, Malgorzata PO started, but discontinued due to lack of improvement. (5) History of PCOS Impression: Patient has had this disease since early adult sin. She notes that she has a current ovarian cyst that needs to be removed soon. She also admits to infrequent spotting related to this cyst. No pain with palpation. Plan: Monitor for signs of explosion. Control pain. Encourage activity. (6) Morbid obesity with BMI of 45.0-49.9, adult Impression: Patient has a current BMI of 46.1. Plan: continue daily weights. Controlling blood sugars at home may improve BMI.
--- NOTE | 2017-06-17 15:36 | XRAY Report ---
TWO VIEW LEFT FOOT: 06/17/2017 CLINICAL INDICATION: Foot infection. FINDINGS: Frontal and lateral views of the left foot demonstrate soft tissue swelling between the 1s t and 2nd toes and dorsally. There are two linear metallic foreign bodies in the soft tissues between the 1st and 2nd toes, likely representing fractured needles. Mild osteoarthritis is seen in the 1st metatarsophalangeal joint. No definite subcutaneous gas is seen. Vascular calcifications are present. Plantar calcaneal spurring is seen. IMPRESSION: SOFT TISSUE SWELLING, COMPATIBLE WITH SOFT TISSUE INFECTION. NO OSTEOLYSIS TO SUGGEST OS TEOMYELITIS. FRACTURED NEEDLES IN THE SOFT TISSUES BETWEEN THE 1ST AND 2ND TOES. JOB #: [id number] EXT JOB #:[id number]
--- NOTE | 2017-06-17 16:46 | PROVIDER PROGRESS NOTE ---
Subjective - Prog Note Date Prog Note Date: 06/17/17 Prog Note Time: 16:44 - Subjective Pt reports feeling: No change (Progressive left foot swelling and redness x 3 days, refractory to outpt antibiotics. Is a diabetic. Was noted to have FB (? sewing needles) in left foot web space while awaiting MRI scan of the foot. Plain XR demonstrate the FB's.) Subjective: Patient presents with a 3 day hx of progressive left forefoot sweliing and redness, despite out patient antibioitcs. Is a diabetic. Sews as a hobby. Denies a hx of self inflicted injury to foot. Objective - Vital Signs/Intake & Output Vital Signs: Vital Signs x48h Temp Pulse Resp BP Pulse Ox 06/17/17 13:00 37.6 C H 102 H 16 149/54 H 98 06/17/17 08:54 37.3 C 98 16 140/61 H 95 Intake & Output: Intake & Output 06/14/17 06/15/17 06/16/17 06/17/17 23:59 23:59 23:59 23:59 Intake Total 1077.5 3383.500 Balance 1077.5 3383.500 - Lab Results Fish Bones: 06/17/17 05:27 06/17/17 05:27 Other Labs: Lab Results x24hrs 06/17/17 06/17/17 06/17/17 Range/Units 11:58 07:29 05:27 WBC (4.8-10.8) x10^3/uL RBC (4.20-5.40) 10^6/uL Hgb (12.0-16.0) g/dL Hct (37.0-47.0) % MCV (81.0-99.0) fL MCH (27.0-31.0) pg MCHC (32.0-36.0) g/dL RDW (12.0-15.0) % Plt Count (130-450) 10^3/uL MPV (7.9-10.8) fL Neut # (1.5-6.6) 10^3/uL Lymph # (1.5-3.5) 10^3/uL [place] # (0.0-1.0) 10^3/uL Eos # (0.0-0.7) 10^3/uL Baso # (0.0-0.1) 10^3/uL Absolute Nucleated RBC x10^3/uL Nucleated RBC % /100WBC Sodium 139 (135-145) mmol/L Potassium 3.3 L (3.5-5.0) mmol/L Chloride 100 L (101-111) mmol/L Carbon Dioxide 31 (21-32) mmol/L Anion Gap 8.0 (6-13) BUN 9 (6-20) mg/dL Creatinine 0.7 (0.4-1.0) mg/dL Estimated GFR (MDRD) 87 L (>89) Glucose 112 H (70-100) mg/dL POC Whole Bld Glucose 238 H 95 (70 - 100) mg/dL Glycated Hemoglobin (4.6-6.2) % Estim Average Glucose (70-100) Calcium 8.1 L (8.5-10.3) mg/dL Total Bilirubin 0.5 (0.2-1.0) mg/dL AST 10 (10-42) IU/L ALT 15 (10-60) IU/L Alkaline Phosphatase 84 (42-121) IU/L Total Protein 6.3 L (6.7-8.2) g/dL Albumin 2.6 L (3.2-5.5) g/dL Globulin 3.7 (2.1-4.2) g/dL Albumin/Globulin Ratio 0.7 L (1.0-2.2) 06/17/17 06/17/17 06/16/17 Range/Units 05:27 05:27 20:30 WBC 12.0 H (4.8-10.8) x10^3/uL RBC 4.51 (4.20-5.40) 10^6/uL Hgb 12.1 (12.0-16.0) g/dL Hct 37.7 (37.0-47.0) % MCV 83.5 (81.0-99.0) fL MCH 26.8 L (27.0-31.0) pg MCHC 32.1 (32.0-36.0) g/dL RDW 14.8 (12.0-15.0) % Plt Count 232 (130-450) 10^3/uL MPV 8.1 (7.9-10.8) fL Neut # 8.5 H (1.5-6.6) 10^3/uL Lymph # 2.3 (1.5-3.5) 10^3/uL [place] # 1.0 (0.0-1.0) 10^3/uL Eos # 0.2 (0.0-0.7) 10^3/uL Baso # 0.1 (0.0-0.1) 10^3/uL Absolute Nucleated RBC 0.01 x10^3/uL Nucleated RBC % 0.0 /100WBC Sodium (135-145) mmol/L Potassium (3.5-5.0) mmol/L Chloride (101-111) mmol/L Carbon Dioxide (21-32) mmol/L Anion Gap (6-13) BUN (6-20) mg/dL Creatinine (0.4-1.0) mg/dL Estimated GFR (MDRD) (>89) Glucose (70-100) mg/dL POC Whole Bld Glucose 234 H (70 - 100) mg/dL Glycated Hemoglobin 9.1 H (4.6-6.2) % Estim Average Glucose 214 H (70-100) Calcium (8.5-10.3) mg/dL Total Bilirubin (0.2-1.0) mg/dL AST (10-42) IU/L ALT (10-60) IU/L Alkaline Phosphatase (42-121) IU/L Total Protein (6.7-8.2) g/dL Albumin (3.2-5.5) g/dL Globulin (2.1-4.2) g/dL Albumin/Globulin Ratio (1.0-2.2) 06/16/17 Range/Units 17:27 WBC (4.8-10.8) x10^3/uL RBC (4.20-5.40) 10^6/uL Hgb (12.0-16.0) g/dL Hct (37.0-47.0) % MCV (81.0-99.0) fL MCH (27.0-31.0) pg MCHC (32.0-36.0) g/dL RDW (12.0-15.0) % Plt Count (130-450) 10^3/uL MPV (7.9-10.8) fL Neut # (1.5-6.6) 10^3/uL Lymph # (1.5-3.5) 10^3/uL [place] # (0.0-1.0) 10^3/uL Eos # (0.0-0.7) 10^3/uL Baso # (0.0-0.1) 10^3/uL Absolute Nucleated RBC x10^3/uL Nucleated RBC % /100WBC Sodium (135-145) mmol/L Potassium (3.5-5.0) mmol/L Chloride (101-111) mmol/L Carbon Dioxide (21-32) mmol/L Anion Gap (6-13) BUN (6-20) mg/dL Creatinine (0.4-1.0) mg/dL Estimated GFR (MDRD) (>89) Glucose (70-100) mg/dL POC Whole Bld Glucose 222 H (70 - 100) mg/dL Glycated Hemoglobin (4.6-6.2) % Estim Average Glucose (70-100) Calcium (8.5-10.3) mg/dL Total Bilirubin (0.2-1.0) mg/dL AST (10-42) IU/L ALT (10-60) IU/L Alkaline Phosphatase (42-121) IU/L Total Protein (6.7-8.2) g/dL Albumin (3.2-5.5) g/dL Globulin (2.1-4.2) g/dL Albumin/Globulin Ratio (1.0-2.2) - Diagnostic Imaging Diagnostic Imaging Comments: XR show two metallic FB in the first web space of the left foot - Other Results/Comments Other Results/Comments: EXAM: Diffuse redness in left foot, extending to ankle and calf area. generalized foot swelling. Mildly tender. Moves toes ok. Diminished sensation of the toes and foot Assessment/Plan - Problem List (1) Cellulitis of left lower extremity Impression: Workup of her left foot cellulitis led to XR showing retained metallic foreign bodies in left foot in first web space PLAN: To OR Tuesday AM (ate lunch) for I&D of left foot and removal of foreign bodies. Risk and benefits explained. Wish to proceed as planned. Consent signed.
--- NOTE | 2017-06-17 17:28 | CONSULTATION NOTE ---
DATE OF CONSULTATION: 06/17/2017 00:00:00 REQUESTING PROVIDER: HISTORY OF PRESENT ILLNESS: The patient is a 56-year-old obese female diabetic who presents with about a 3-day history of progressive left forefoot redness, swelling, and now some drainage fro m what appears to be bullae from the cellulitis in her foot. An attempt was made to treat this as an outpatient with antibiotics. The patient's condition, however, has not improved. She was recently adm itted to the hospital for IV antibiotics and further management of her left foot infection. Part of t he workup was to entail an MRI scan of her foot. Screening x-rays of the foot, however, revealed 2 re tained metal foreign bodies (?sewing needles) in the first webspace of the left foot. We have been as ked to assist in I and D of her left foot infection as needed, as well as removal of her foreign bodi es. The patient denies a history of self-inflicted injury or wounds. It is unknown how she may have g [place] the sewing needles in place. She does sew as a hobby, however. PHYSICAL EXAMINATION: The patient's left foot shows some diffuse swelling and redness in the forefoot , though there is extension into the rest of the foot and up the ankle and distal calf area. She had some mild tenderness on palpation around the forefoot area. Minimal serous drainage noted from the fi rst web space of the foot as well. Moves her toes satisfactorily. Sensation is diminished. X-rays of the foot show 2 linear metallic foreign bodies in the first web space of the foot. They silva ear to be sewing needles. ASSESSMENT 1. Left foot cellulitis. 2. Diabetes. 3. Retained foreign bodies in the left forefoot. PLAN: Since the patient just had lunch earlier today, we have elected to proceed to the operating tera m on Tuesday morning at 8 o'clock for removal of her foreign body and an I and D of her left forefoo t infection as needed. Risks and benefits of surgery were explained to the patient. She wishes to pro ceed. Consent has been signed. JOB #: [id number] EXT JOB #:[id number]
[2017-06-17] MEDS ORDERED: SIMETHICONE 40 MG/0.6 ML 30 ML BOTTLE PO PRN (19:21)
[2017-06-17] MEDS ORDERED: INSULIN ASPART 300 UNIT/3 ML PEN SUBQ ONE (21:10)
[2017-06-17] MEDS ORDERED: INSULIN ASPART 300 UNIT/3 ML PEN SUBQ SCH (21:47)
[2017-06-18] MEDS: PIPERACILLIN/TAZOBACTAM 3.375 GM in SODIUM CHLORIDE 0.9% MINIBAG 100 ML IV SCH ×3 (02:03→19:24)
[2017-06-18] MEDS: VANCOMYCIN INJ 2 GM in SODIUM CHLORIDE 0.9% 500 ML IV SCH (05:31)
[2017-06-18] MEDS: SODIUM CHLORIDE FLUSH 0.9% 10 ML SYRINGE IVP SCH ×5 (07:54→21:04)
[2017-06-18] MEDS: INSULIN ASPART 300 UNIT/3 ML PEN SUBQ SCH ×4 (07:54→20:59)
[2017-06-18] MEDS: PANTOPRAZOLE 40 MG VIAL IV SCH (07:55)
[2017-06-18] MEDS ORDERED: LACTATED RINGERS 1,000 ML IV ONE (08:11)
[2017-06-18] MEDS ORDERED: ROCURONIUM 50 MG/5 ML VIAL IVP ONE (08:20)
[2017-06-18] MEDS ORDERED: ONDANSETRON 4 MG/2 ML VIAL IVP ONE (08:20)
[2017-06-18] MEDS ORDERED: SUCCINYLCHOLINE 200 MG/10 ML VIAL IVP ONE (08:20)
[2017-06-18] MEDS ORDERED: METOCLOPRAMIDE 10 MG/2 ML VIAL IVP ONE (08:20)
[2017-06-18] MEDS ORDERED: PROPOFOL 200 MG/20 ML VIAL IVP ONE (08:20)
[2017-06-18] MEDS ORDERED: LIDOCAINE-MPF 2% 5 ML VIAL IM ONE (08:20)
[2017-06-18] MEDS ORDERED: fentaNYL 100 MCG/2 ML VIAL IVP ONE (08:20)
[2017-06-18] MEDS ORDERED: MORPHINE 2 MG/ML SYRINGE IVP PRN (09:10)
[2017-06-18] MEDS ORDERED: PROCHLORPERAZINE 10 MG/2 ML VIAL IVP PRN (09:10)
[2017-06-18] MEDS ORDERED: ACETAMINOPHEN 325 MG TABLET PO PRN (09:10)
[2017-06-18] MEDS ORDERED: ONDANSETRON 4 MG/2 ML VIAL IVP PRN (09:10)
[2017-06-18] MEDS ORDERED: oxyCOD/ACETAMIN 5 MG/325 MG TABLET PO PRN (09:10)
[2017-06-18] MEDS ORDERED: ACETAMINOPHEN 1,000 MG/100 ML 100 ML IV PRN (09:10)
--- NOTE | 2017-06-18 09:16 | OPERATIVE REPORT ---
Operative Report - General Admit Date: 06/16/17 Procedure Date: 06/18/17 Planned Procedure: Incision and drainage of left foot infection; removal of foreign bodies Pre-Op Diagnosis: Left diabetic foot infection; retained foreign bodies Procedure Performed: Incision, drainage and irrigation left foot diabetic infection; removal of foreign bodies Post Op Diagnosis: Same - Procedure Note Primary Surgeon: Brian Greene MD Anesthesia Provider: Rachael Nichols CRNA Anesthesia Technique: General ET tube IV Fluids (mL): 500 Estimated Blood Loss (mL): 20 Drain/Tube Type: Other (1/4 inch NuGauze packing into foot wound)
--- NOTE | 2017-06-18 09:45 | OPERATIVE REPORT ---
DATE OF SURGERY: 06/18/2017 00:00:00 PREOPERATIVE DIAGNOSIS: Left diabetic foot infection; retained foreign bodies, left forefoot. POSTOPERATIVE DIAGNOSIS: Left diabetic foot infection; retained foreign bodies, left forefoot. NAME OF PROCEDURE: Incision, drainage, and debridement/irrigation of left diabetic foot infection. Re moval of retained foreign body, left forefoot. SURGEON: Brian Greene MD ANESTHESIA: General. DESCRIPTION OF PROCEDURE: The patient was taken to the operating room on the morning of 06/18/2017, w here she was placed under general anesthetic in supine position without any complications. We applied a thigh pneumatic tourniquet on the left leg, but did not inflate it during our procedure. We proceeded to enlarge the incision that was made on her admission to drain the superficial abscess in the dorsal web space of her left foot. As we explored her wound we found a pocket of 2 mm of serop urulent drainage. A sample of this drainage was obtained and sent to Microbiology for aerobic and earnest erobic cultures. We then washed the cavity copiously with sterile saline using approximately 500 mL. Next, under fluoroscopic guidance, we were able to identify, locate, and remove the retained foreign body from her left forefoot. A total of 4 small metallic fragments were removed and kept for patient. Fluoroscopic view of the foot after our procedure showed no retained foreign bodies seen. We then co piously irrigated the wound again with sterile saline using approximately 300 mL of fluid. At the end of our procedure, there were no further pockets identified or any evidence of any more pur ulent drainage visible. Minimal skin debridement was then done. We then packed the wound open with 1/ 4 inch Nu Gauze packing. A bulky soft dressing was applied to the foot. The patient was then awoken f rom anesthetic and taken to the recovery room in satisfactory condition. ESTIMATED BLOOD LOSS: 20 mL. REPLACEMENT: 500 mL of crystalloid. INTRAOPERATIVE COMPLICATIONS: None. PLAN: Patient will be continued on her IV antibiotics pending results of our cultures. Will plan on r emoving the packing from her foot in 24-36 hours and begin daily dressing changes along with her anti biotic coverage. JOB #: [id number] EXT JOB #:[id number]
[2017-06-18] MEDS: FAMOTIDINE 20 MG TABLET PO SCH (12:17)
[2017-06-18] MEDS: POLYETHYLENE GLYCOL 3350 17 GM PACKET PO SCH (12:17)
[2017-06-18] MEDS: ASPIRIN CHEW 81 MG TABLET PO SCH (12:17)
[2017-06-18] MEDS: FEXOFENADINE 60 MG TABLET PO SCH (12:17)
[2017-06-18] MEDS: AMITRIPTYLINE 25 MG TABLET PO SCH (12:17)
[2017-06-18] MEDS: ENOXAPARIN 40 MG/0.4 ML SYRINGE SUBQ SCH (12:18)
[2017-06-18] MEDS: OXYMETAZOLINE NASAL SPRAY NAS SCH ×2 (12:18→20:58)
[2017-06-18] MEDS: INSULIN GLARGINE 300 UNIT/3 ML PEN SUBQ SCH ×2 (12:23→21:02)
--- NOTE | 2017-06-18 16:07 | PROVIDER PROGRESS NOTE ---
Subjective - Prog Note Date Prog Note Date: 06/18/17 Prog Note Time: 16:03 - Subjective Pt reports feeling: No change Subjective: Patient now post-op day one and complains of "feeling tired". She denies SOB, chest pain, N/V or a new cough. Current Medications - Current Medications Current Medications: Vancomycin discontinued, Zosyn IV continued until wound culture sensitivity testing is complete. Objective - Vital Signs/Intake & Output Reviewed Vital Signs: Yes Vital Signs: Vital Signs x48h Temp Pulse Resp BP BP Pulse Ox 06/18/17 15:22 36.7 C 91 18 146/58 H 94 06/18/17 14:15 37.1 C 88 18 137/60 H 94 06/18/17 13:43 37.4 C 95 06/18/17 12:14 37.5 C 95 18 147/62 H 93 06/18/17 11:15 37.7 C H 93 18 129/53 L 95 06/18/17 10:15 37.5 C 91 16 142/50 H 95 06/18/17 09:45 37.3 C 88 16 142/54 H 94 06/18/17 09:30 97 06/18/17 09:21 100 06/18/17 09:16 100 06/18/17 09:11 97 Intake & Output: Intake & Output 06/15/17 06/16/17 06/17/17 06/18/17 23:59 23:59 23:59 23:59 Intake Total 1077.5 4223.500 1100 Output Total 20 Balance 1077.5 4223.500 1080 - Objective General Appearance: positive: No acute distress, Lethargic Eyes Bilateral: positive: Normal inspection ENT: positive: ENT inspection nml, Pharynx nml, No signs of dehydration Neck: positive: Nml inspection, Thyroid nml, No JVD, Trachea midline Respiratory: positive: Chest non-tender, No respiratory distress, Breath sounds nml Cardiovascular: positive: Regular rate & rhythm, No gallop Peripheral Pulses: 2+ Radial (R), 2+ Radial (L) Abdomen: positive: Non-tender, Nml bowel sounds, Guarding, Hepatomegaly Back: positive: Nml inspection Skin: positive: Color nml, No rash, Warm, Dry Extremities: positive: Non-tender, Full ROM, Pedal edema (left with pitting edema related to surgery and wound.) Neurologic/Psychiatric: positive: Oriented x3, CN's nml (2-12), Motor nml, Sensation nml, Depressed mood/affect Reflexes: Bicep (R): 3+, Bicep (L): 3+ - Lab Results Fish Bones: 06/19/17 15:32 06/19/17 21:00 Other Labs: Lab Results x24hrs 06/18/17 06/18/17 06/18/17 Range/Units 11:31 09:16 07:38 POC Whole Bld Glucose 224 H 236 H 229 H (70 - 100) mg/dL Last Dose Date Last Dose Time Vancomycin Trough (5.0-15.0) ug/mL 06/18/17 06/17/17 06/17/17 Range/Units 04:38 20:20 17:00 POC Whole Bld Glucose 382 H 319 H (70 - 100) mg/dL Last Dose Date 06-17-17 Last Dose Time 1700 Vancomycin Trough 32.1 H* (5.0-15.0) ug/mL - Diagnostic Imaging Diagnostic Imaging Results: positive: Prelim report reviewed Assessment/Plan - Problem List (1) Cellulitis of left lower extremity Impression: In the days prior to this admission, patient was in her bathroom and noticed her leg to appear "sunburnt". She has a white floor, so this really stood out to her. The next day she came to our ED, was treated with antibiotics and sent home to finish with oral antibiotics. Started having fever/chills, headache, increased LLE pain and now noticed a blister forming on the anterior aspect of foot between the largest toe and the second toe. MRI of left foot showed a blacked out area that was noted by tech. Radiologist suggested an x-ray for possible metal object interference. This surprisingly showed sewing needles, so Dr. Greene-Ortho surgery took patient to OR on 06/17, with a successful removal with new wound culture sent. Plan: sensitivities are pending. Continue IV antibiotics. (2) Abscess of left foot excluding toes Impression: Blister like formation noted on left foot between great toe and second toes, so lanced on admission in ED, with fluid drainage. Dr. Greene removed 2 sewing needles in OR. Culture results showed staph aureus and new cultures obtained in OR. Plan: Continue with dressing changes, now post-op since 06/17. (3) Diabetes mellitus type 2 with complications Impression: Patient is insulin resistant, and Lantus dose increased from 84 units BID to 88 units BID. HgA1C was noted to be elevated to 10 on admission. Patient admits to non-compliance. Plan: continue Lantus and SSI. Encourage oral intake. (4) Allergic sinusitis Impression: Patient complains of left ear pain that started about the same time as her chief complaint. Upon exam with otoscope, fluid is noted behind bilateral tympanic membranes. Plan: Afrin nasal spray for the next 3 days, Malgorzata PO started, but discontinued due to lack of improvement. (5) History of PCOS Impression: Patient has had this disease since early adult sin. She notes that she has a current ovarian cyst that needs to be removed soon. She also admits to infrequent spotting related to this cyst. No pain with palpation. Plan: Monitor for signs of explosion. Control pain. Encourage activity. (6) Morbid obesity with BMI of 45.0-49.9, adult Impression: Patient has a current BMI of 46.1. Plan: continue daily weights. Controlling blood sugars at home may improve BMI.
[2017-06-18] MEDS: SODIUM CHLORIDE 0.9% 1,000 ML IV SCH ×2 (19:00→21:08)
[2017-06-18] MEDS ORDERED: BENZOCAINE/MENTHOL LOZENGE MM PRN (21:45)
[2017-06-19] MEDS: PIPERACILLIN/TAZOBACTAM 3.375 GM in SODIUM CHLORIDE 0.9% MINIBAG 100 ML IV SCH ×2 (02:15→10:59)
[2017-06-19] MEDS ORDERED: BENZOCAINE/MENTHOL LOZENGE MM ONE (04:47)
[2017-06-19] MEDS: SODIUM CHLORIDE FLUSH 0.9% 10 ML SYRINGE IVP SCH ×3 (05:44→15:29)
[2017-06-19] MEDS ORDERED: SODIUM CHLORIDE 0.65% NASAL SPRAY NAS PRN (08:24)
[2017-06-19] MEDS ORDERED: ENOXAPARIN 40 MG/0.4 ML SYRINGE SUBQ SCH (09:00)
[2017-06-19] MEDS: POLYETHYLENE GLYCOL 3350 17 GM PACKET PO SCH (09:00)
[2017-06-19] MEDS: AMITRIPTYLINE 25 MG TABLET PO SCH (09:00)
[2017-06-19] MEDS: FAMOTIDINE 20 MG TABLET PO SCH (09:00)
[2017-06-19] MEDS: ASPIRIN CHEW 81 MG TABLET PO SCH (09:00)
[2017-06-19] MEDS: PANTOPRAZOLE 40 MG VIAL IV SCH (09:01)
[2017-06-19] MEDS: FLUTICASONE NASAL SPRAY NAS SCH (09:02)
[2017-06-19] MEDS: OXYMETAZOLINE NASAL SPRAY NAS SCH ×2 (09:03→22:27)
[2017-06-19] MEDS: SODIUM CHLORIDE FLUSH 0.9% 10 ML SYRINGE IVP PRN ×5 (09:04→22:28)
[2017-06-19] MEDS: INSULIN ASPART 300 UNIT/3 ML PEN SUBQ SCH ×4 (09:05→21:27)
[2017-06-19] MEDS: INSULIN GLARGINE 300 UNIT/3 ML PEN SUBQ SCH ×2 (09:08→21:27)
[2017-06-19] MEDS: SODIUM CHLORIDE 0.9% 1,000 ML IV SCH (10:56)
--- NOTE | 2017-06-19 11:01 | PROVIDER PROGRESS NOTE ---
Subjective - Prog Note Date Prog Note Date: 06/19/17 Prog Note Time: 10:57 - Subjective Pt reports feeling: Improved (Minimal pain now) Objective - Vital Signs/Intake & Output Vital Signs: Vital Signs x48h Temp Pulse Resp BP BP Pulse Ox 06/19/17 07:54 37.8 C H 106 H 22 152/68 H 93 06/19/17 04:35 37.2 C 115 H 20 165/65 H 95 Intake & Output: Intake & Output 06/16/17 06/17/17 06/18/17 06/19/17 23:59 23:59 23:59 23:59 Intake Total 1077.5 4223.500 1540 1800 Output Total 20 Balance 1077.5 4223.500 1520 1800 - Lab Results Fish Bones: 06/17/17 05:27 06/17/17 05:27 Other Labs: Lab Results x24hrs 06/19/17 06/18/17 06/18/17 Range/Units 07:50 20:42 16:39 POC Whole Bld Glucose 190 H 232 H 194 H (70 - 100) mg/dL 06/18/17 Range/Units 11:31 POC Whole Bld Glucose 224 H (70 - 100) mg/dL - Other Results/Comments Other Results/Comments: EXAM: Moderate serous drainage on dressing. Dressing changed without problem. Wound: no pooled drainage. Less redness and less swelling in forefoot. No necrosis seen in wound edges N/V unchanged Assessment/Plan - Problem List (1) Cellulitis of left lower extremity Impression: S/P removal foreign body left forefoot; I&D left forefoot abscess - doing wsell post op PLAN: Continue antibiotics and daily dressing changes (ordered). Dr. Bell will be following, beginning on 06/20.
[2017-06-19] MEDS ORDERED: FUROSEMIDE 100 MG/10 ML VIAL IVP ONE ×2 (15:30→22:11)
--- NOTE | 2017-06-19 15:33 | PROVIDER PROGRESS NOTE ---
Subjective - Prog Note Date Prog Note Date: 06/19/17 Prog Note Time: 15:32 - Subjective Pt reports feeling: No change Subjective: Patient admits to feeling increasingly sleepy. She also thinks her urination has slowed down. She denies SOB, chest pain, vomiting or a new cough. She has indigestion and mild nausea at times. Current Medications - Current Medications Current Medications: Active Medications Acetaminophen (Tylenol) 650 - 975 mg PO Q4HR PRN PRN Reason: PAIN Amitriptyline HCl (Elavil) 25 mg PO DAILY [facility] Last Admin: 06/19/17 09:00 Dose: 25 mg Aspirin ([place] Aspirin) 81 mg PO DAILY [facility] Last Admin: 06/19/17 09:00 Dose: 81 mg Fluticasone Propionate (Flonase) 1 sprays BARRY DAILY [facility] Last Admin: 06/19/17 09:02 Dose: 1 spr Heparin Sodium (Porcine) () 5,000 unit SUBQ BID [facility] Last Admin: 06/19/17 21:08 Dose: Not Given Acetaminophen (Ofirmev) 100 mls @ 400 mls/hr IV Q6HR PRN PRN Reason: PAIN Clindamycin Phosphate (Cleocin 600 Mg/50 Ml) 50 mls @ 100 mls/hr IV Q6H [facility] Last Infusion: 06/19/17 16:45 Dose: Infused Sodium Chloride (Normal Saline 0.9%) 1,000 mls @ 125 mls/hr IV .Q8H [facility] Insulin Aspart (Novolog) 2 - 10 unit SUBQ 0800,1200,1700,2100 [facility] PRN Reason: Protocol Last Admin: 06/19/17 21:27 Dose: Not Given Insulin Glargine (Lantus Solostar) 88 unit SUBQ BID [facility] Last Admin: 06/19/17 21:27 Dose: Not Given Ondansetron HCl (Zofran Odt) 4 mg TL Q6HR PRN PRN Reason: Nausea / Vomiting Last Admin: 06/17/17 19:25 Dose: 4 mg Ondansetron HCl (Zofran Inj) 4 mg IVP Q6HR PRN PRN Reason: Nausea / Vomiting Last Admin: 06/19/17 18:16 Dose: 4 mg Oxycodone/Acetaminophen (Percocet 5 Mg/325 Mg) 1 tab PO Q4HR PRN PRN Reason: PAIN Oxymetazoline HCl (Afrin) 2 sprays BARRY BID [facility] Stop: 06/19/17 22:59 Last Admin: 06/19/17 09:03 Dose: 1 spr Pantoprazole Sodium (Protonix) 80 mg IV DAILY [facility] Last Admin: 06/19/17 09:01 Dose: 80 mg Polyethylene Glycol (Miralax) 17 gm PO DAILY [facility] Last Admin: 06/19/17 09:00 Dose: 17 gm Prochlorperazine Edisylate (Compazine Inj) 10 mg IVP Q6HR PRN PRN Reason: Nausea / Vomiting Simethicone () 80 mg PO Q4HR PRN PRN Reason: Gas Sodium Chloride (Normal Saline Flush 0.9%) 10 ml IVP Q8HR [facility] Last Admin: 06/19/17 15:29 Dose: 10 ml Sodium Chloride (Normal Saline Flush 0.9%) 10 ml IVP PRN PRN PRN Reason: NEEDED PER PROVIDER ORDERS Last Admin: 06/19/17 18:16 Dose: 10 ml Sodium Chloride ([place]) 2 sprays BARRY Q4HR PRN PRN Reason: Nasal Congestion Temazepam (Restoril) 15 mg PO QPM PRN PRN Reason: Insomnia Throat Lozenges (Cepacol) 1 lozenge MM Q2HR PRN PRN Reason: Throat pain Last Admin: 06/19/17 04:44 Dose: 1 lozenge Amitriptyline [Elavil] 25 mg PO DAILY 06/14/17 Ascorbic Acid [Vitamin C] 1,000 mg PO DAILY 06/14/17 Aspirin 81 mg PO DAILY 06/14/17 Insulin Aspart [NovoLOG] 16 - 30 unit SQ TID 06/14/17 Insulin Glargine [Lantus Solostar] 84 unit SQ BID 06/14/17 [place]-3/Dha/Epa/Fish Oil [Fish Oil 1,000 mg Softgel] 1 tab PO DAILY 06/14/17 Omeprazole 40 mg PO DAILY 06/14/17 Senna [Senokot] 8.6 mg PO ONCE 06/14/17 Simvastatin 40 mg PO DAILY 06/14/17 Telmisartan/Hydrochlorothiazid [Micardis Hct 80-25 mg Tablet] 1 each PO DAILY metFORMIN [Glucophage] 2,000 mg PO DAILY 06/14/17 Objective - Vital Signs/Intake & Output Reviewed Vital Signs: Yes Vital Signs: Vital Signs x48h Temp Pulse Resp BP BP Pulse Ox 06/19/17 15:11 37.3 C 102 H 18 164/67 H 94 06/19/17 12:27 37.1 C 102 H 24 165/65 H 94 06/19/17 07:54 37.8 C H 106 H 22 152/68 H 93 Intake & Output: Intake & Output 06/16/17 06/17/17 06/18/17 06/19/17 23:59 23:59 23:59 23:59 Intake Total 1077.5 4223.500 1540 1900 Output Total 20 50 Balance 1077.5 4223.500 1520 1850 - Objective General Appearance: positive: Mild distress, Lethargic Eyes Bilateral: positive: Normal inspection ENT: positive: ENT inspection nml, Pharynx nml, No signs of dehydration, Pharyngeal erythema Neck: positive: Nml inspection, Thyroid nml, No JVD, Trachea midline Respiratory: positive: Chest non-tender, No respiratory distress, Other ( diminished without crackles in all lung lobes.) Cardiovascular: positive: Regular rate & rhythm, No gallop Peripheral Pulses: 2+ Radial (R), 2+ Radial (L) Abdomen: positive: Guarding, Rebound, Hepatomegaly, Abnml bowel sounds, Other ( obese, tymanic) Back: positive: Nml inspection Skin: positive: Color nml, No rash, Warm, Dry Extremities: positive: Non-tender, Pedal edema (LLE with increased pitting in lower leg.) Neurologic/Psychiatric: positive: Oriented x3, Weakness, Sensory loss, Depressed mood/affect Reflexes: Bicep (R): 2+, Bicep (L): 2+ - Lab Results Fish Bones: 06/19/17 15:32 06/19/17 21:00 Other Labs: Lab Results x24hrs 06/19/17 06/19/17 06/18/17 Range/Units 11:20 07:50 20:42 POC Whole Bld Glucose 222 H 190 H 232 H (70 - 100) mg/dL 06/18/17 Range/Units 16:39 POC Whole Bld Glucose 194 H (70 - 100) mg/dL - Diagnostic Imaging Diagnostic Imaging Results: positive: Prelim report reviewed Assessment/Plan - Problem List (1) EVIN (acute kidney injury) Impression: Patient appeared to be slightly clinically un-well, so follow up labs were ordered. In addition, an abdominal CT with contrast was ordered, a retroperitineal US due to complaints of decreased urine output. Creatinine resulted elevated from previous value of 0.7 to now 6.7. Repeat lab confirmed. Suspect AIN caused by pipercillin-tazobactam, so a medication review was completed. Zosyn discontinued. Plan: NS IV bolus, oral contrast for abdominal CT, 40mg IV lasix x1, and re- check BMP in a few hours. Night MD hospitalist to follow. (2) Abdominal pain Impression: Upon admission, patient admits to feeling "bloated". Simethicone ordered and appropriate antacids to control symptoms. It was thought to be likely due to cellulitis. Today abdominal pain was increased and localized to bilateral low abdomen during exam. Plan: Abdominal/pelvis CT was ordered with oral contrast only in light of EVIN- results pending. (3) Cellulitis of left lower extremity Impression: In the days prior to this admission, patient was in her bathroom and noticed her leg to appear "sunburnt". She has a white floor, so this really stood out to her. The next day she came to our ED, was treated with antibiotics and sent home to finish with oral antibiotics. Started having fever/chills, headache, increased LLE pain and now noticed a blister forming on the anterior aspect of foot between the largest toe and the second toe. MRI of left foot showed a blacked out area that was noted by tech. Radiologist suggested an x-ray for possible metal object interference. This surprisingly showed sewing needles, so Dr. Greene-Ortho surgery took patient to OR on 06/17, with a successful removal with new wound culture sent. Plan: sensitivities are pending. Continue IV antibiotics, that have been changed due to recent EVIN and is now Clindamycin IV. (4) Abscess of left foot excluding toes Impression: Blister like formation noted on left foot between great toe and second toes, so lanced on admission in ED, with fluid drainage. Dr. Greene removed 2 sewing needles in OR. Culture results showed staph aureus and new cultures obtained in OR. Plan: Continue with dressing changes, now post-op since 06/17. (5) Diabetes mellitus type 2 with complications Impression: Patient is insulin resistant, and Lantus dose increased from 84 units BID to 88 units BID. HgA1C was noted to be elevated to 10 on admission. Patient admits to non-compliance. Plan: continue Lantus and SSI. Encourage oral intake. (6) Allergic sinusitis Impression: Patient complains of left ear pain that started about the same time as her chief complaint. Upon exam with otoscope, fluid is noted behind bilateral tympanic membranes. Plan: Afrin nasal spray for the next 3 days, Malgorzata PO started, but discontinued due to lack of improvement. (7) History of PCOS Impression: Patient has had this disease since early adult sin. She notes that she has a current ovarian cyst that needs to be removed soon. She also admits to infrequent spotting related to this cyst. No pain with palpation. Plan: Monitor for signs of explosion. Control pain. Encourage activity. (8) Morbid obesity with BMI of 45.0-49.9, adult Impression: Patient has a current BMI of 46.1. Plan: continue daily weights. Controlling blood sugars at home may improve BMI.
[2017-06-19 15:37] LABS: BASOPHILS # (AUTO) 0.1 10^3/uL (0.0-0.1); BASOPHILS % (AUTO) 0.4 %; EOSINOPHILS # (AUTO) 0.1 10^3/uL (0.0-0.7); EOSINOPHILS % (AUTO) 0.6 %; HCT - HEMATOCRIT 33.8 % (37.0-47.0); HGB - HEMOGLOBIN 11.2 g/dL (12.0-16.0); LYMPHOCYTES # (AUTO) 1.4 10^3/uL (1.5-3.5); LYMPHOCYTES % (AUTO) 10.6 %; MEAN CORPUSCULAR HEMOGLOBIN 27.2 pg (27.0-31.0); MEAN CORPUSCULAR VOLUME 82.3 fL (81.0-99.0); MEAN PLATELET VOLUME 7.1 fL (7.9-10.8); MONOCYTES # (AUTO) 1.1 10^3/uL (0.0-1.0); MONOCYTES % (AUTO) 8.1 %; NEUTROPHILS # (AUTO) 10.9 10^3/uL (1.5-6.6); NEUTROPHILS % (AUTO) 80.3 %; RED BLOOD COUNT 4.11 10^6/uL (4.20-5.40); RED CELL DISTRIBUTION WIDTH 14.4 % (12.0-15.0); UNCORRECTED WHITE BLOOD COUNT 13.6 x10^3/uL; WHITE BLOOD COUNT 13.6 x10^3/uL (4.8-10.8)
[2017-06-19 15:49] LABS: ALBUMIN/GLOBULIN RATIO 0.6 (1.0-2.2); BILIRUBIN,TOTAL 0.4 mg/dL (0.2-1.0); CALCIUM 7.3 mg/dL (8.5-10.3); CREATININE 6.5 mg/dL (0.4-1.0); POTASSIUM 4.3 mmol/L (3.5-5.0)
[2017-06-19] MEDS ORDERED: FUROSEMIDE 40 MG/4 ML VIAL IVP SCH (16:00)
[2017-06-19] MEDS: CLINDAMYCIN 600 MG/50 ML 50 ML IV SCH ×2 (16:10→22:27)
[2017-06-19] MEDS ORDERED: SODIUM CHLORIDE 0.9% 1,000 ML IV ONE ×2 (16:21→21:52)
[2017-06-19 16:55] LABS: CREATININE 6.4 mg/dL (0.4-1.0)
[2017-06-19] MEDS: HEPARIN 5,000 UNIT/ML VIAL SUBQ SCH ×2 (17:26→21:08)
--- NOTE | 2017-06-19 17:45 | Ultrasound Preliminary Report ---
Exam: US RETROPERITONEAL Impression: 1. No evidence of renal stone, mass or hydronephrosis. Both kidneys appear enlarged, potential etiolo gies include but not limited to diabetic nephropathy, acute nephritis and multiple myeloma. 2. Indeterminate 1.8 cm hypoechoic lesion in the left hepatic lobe, new since the previous CT. Multip hase liver CT or MRI recommended for further characterization. [facility] SITE ID: [id number]
--- NOTE | 2017-06-19 18:01 | Ultrasound Report ---
EXAM: RENAL ULTRASOUND EXAM DATE: 06/19/2017 05:04 PM. CLINICAL HISTORY: Oliguria. COMPARISON: 11/07/2007 CT abdomen. TECHNIQUE: Real-time scanning was performed with static images obtained. FINDINGS: The right kidney measures 16.9 cm longitudinally and demonstrates normal echotexture. No evidence of stone, contour deforming mass or hydronephrosis. The left kidney measures 13.6 cm longitudinally and demonstrates no evidence of stone, mass or hydron ephrosis. Prevoid bladder volume 172 mL. Postvoid not obtained. A faint right ureteral jet is seen. No identifi able left ureteral jet. Hyperechoic liver indicating fatty infiltration. There is an incidental 1.3 x 1.4 x 1.8 cm hypoechoic , vascular focus in the left hepatic lobe. IMPRESSION: 1. No evidence of renal stone, mass or hydronephrosis. Both kidneys appear enlarged, potential etiolo gies include but not limited to diabetic nephropathy, acute nephritis and multiple myeloma. 2. Indeterminate 1.8 cm hypoechoic lesion in the left hepatic lobe, new since the previous CT. Multip hase liver CT or MRI recommended for further characterization. [facility] Referring Provider Line: [phone] SITE ID: [id number]
[2017-06-19] MEDS ORDERED: IOPAMIDOL-300 50 ML VIAL ONE (18:11)
[2017-06-19 20:09] LABS: CALCIUM 7.3 mg/dL (8.5-10.3); CREATININE 6.7 mg/dL (0.4-1.0); POTASSIUM 4.2 mmol/L (3.5-5.0)
[2017-06-19 20:58] LABS: BILIRUBIN,URINE NEGATIVE (NEGATIVE)
[2017-06-19 21:15] LABS: BUN - BLOOD UREA NITROGEN 46 mg/dL (6-20); CALCIUM 7.1 mg/dL (8.5-10.3); CARBON DIOXIDE - CO2 22 mmol/L (21-32); CHLORIDE 95 mmol/L (101-111); CREATININE 6.7 mg/dL (0.4-1.0); GFR - MDRD 6 (>89); GLUCOSE 175 mg/dL (70-100); POTASSIUM 4.4 mmol/L (3.5-5.0); SODIUM 131 mmol/L (135-145)
[2017-06-19 21:33] LABS: CALCIUM, IONIZED 0.9 mmol/L (1.15-1.33); VBG PH 7.293 (7.31-7.41)
[2017-06-19] MEDS ORDERED: SODIUM CHLORIDE 0.9% 1,000 ML IV SCH (22:00)
--- NOTE | 2017-06-19 22:47 | CT Preliminary Report ---
Exam: CT ABDOMEN/PELVIS W/O IMPRESSION: 1. Peribronchial nodular airspace opacities throughout the right lung base most likely secondary to p neumonia. 2. Fatty liver. 3. Diverticulosis. 4. Tubular simple 5 cm right pelvic cystic structure thought to represent either hydrosalpinx or ovar minor cyst. Consider pelvic ultrasound for further characterization. [facility] SITE ID: [id number]
--- NOTE | 2017-06-19 22:50 | CT Report ---
EXAM: CT ABDOMEN AND PELVIS EXAM DATE: 06/19/2017 08:01 PM. CLINICAL HISTORY: Low abdominal pain. COMPARISONS: 11/07/2007 CT. TECHNIQUE: Routine helical CT imaging was performed through the abdomen and pelvis. IV contrast: No. Enteric contrast: No. Reconstructions: Coronal and sagittal. In accordance with CT protocol optimization, one or more of the following dose reduction techniques w ere utilized for this exam: automated exposure control, adjustment of mA and/or KV based on patient s ize, or use of iterative reconstructive technique. FINDINGS: Lung Bases: Peribronchial nodular airspace infiltrate seen at the right lung base. No pleural effusio n. Liver: Decreased liver attenuation suggesting fatty infiltration. There is a 1.2 cm focus of nodular sparing of the hepatic dome. Gallbladder/Bile Ducts: Unremarkable. Spleen: Normal. Pancreas: Normal. Adrenal Glands: Normal. Kidneys: Normal. No masses or hydronephrosis. Peritoneal Cavity/Bowel: Diverticulosis, no diverticulitis. No bowel obstruction, free air or fluid. The appendix is well visualized and normal. Pelvic Organs: Urinary bladder decompressed containing a catheter. There is a 4.8 x 7.5 cm tubular cy stic structure within the posterior right pelvis. This is continuous with the uterus and possibly rig ht ovary. Vasculature: No aneurysms or other significant abnormality. Bones: No significant abnormality. Other: None. IMPRESSION: 1. Peribronchial nodular airspace opacities throughout the right lung base most likely secondary to p neumonia. 2. Fatty liver. 3. Diverticulosis. 4. Tubular simple 5 cm right pelvic cystic structure thought to represent either hydrosalpinx or ovar minor cyst. Consider pelvic ultrasound for further characterization. [facility] Referring Provider Line: [phone] SITE ID: [id number]
[2017-06-19] MEDS ORDERED: predniSONE 20 MG TABLET PO SCH (23:00)
[2017-06-20] MEDS: CLINDAMYCIN 600 MG/50 ML 50 ML IV SCH (04:10)
[2017-06-20] MEDS: SODIUM CHLORIDE FLUSH 0.9% 10 ML SYRINGE IVP PRN (04:11)
[2017-06-20 05:56] LABS: BASOPHILS # (AUTO) 0.1 10^3/uL (0.0-0.1); BASOPHILS % (AUTO) 0.6 %; EOSINOPHILS # (AUTO) 0.1 10^3/uL (0.0-0.7); EOSINOPHILS % (AUTO) 0.6 %; HCT - HEMATOCRIT 33.4 % (37.0-47.0); HGB - HEMOGLOBIN 10.9 g/dL (12.0-16.0); LYMPHOCYTES # (AUTO) 1.5 10^3/uL (1.5-3.5); LYMPHOCYTES % (AUTO) 10.4 %; MEAN CORPUSCULAR HGB CONC 32.6 g/dL (32.0-36.0); MEAN PLATELET VOLUME 7.4 fL (7.9-10.8); MONOCYTES # (AUTO) 1.1 10^3/uL (0.0-1.0); MONOCYTES % (AUTO) 7.5 %; NEUTROPHILS # (AUTO) 11.5 10^3/uL (1.5-6.6); NEUTROPHILS % (AUTO) 80.9 %; RED BLOOD COUNT 4.03 10^6/uL (4.20-5.40); RED CELL DISTRIBUTION WIDTH 14.7 % (12.0-15.0); UNCORRECTED WHITE BLOOD COUNT 14.2 x10^3/uL; WHITE BLOOD COUNT 14.2 x10^3/uL (4.8-10.8)
[2017-06-20 06:15] LABS: ALBUMIN/GLOBULIN RATIO 0.6 (1.0-2.2); BILIRUBIN,TOTAL 0.6 mg/dL (0.2-1.0); BUN - BLOOD UREA NITROGEN 49 mg/dL (6-20); CALCIUM 7.1 mg/dL (8.5-10.3); CARBON DIOXIDE - CO2 22 mmol/L (21-32); CHLORIDE 97 mmol/L (101-111); GFR - MDRD 6 (>89); GLUCOSE 151 mg/dL (70-100); MAGNESIUM 1.5 mg/dL (1.7-2.8); PHOSPHORUS 5.7 mg/dL (2.5-4.6); POTASSIUM 4.2 mmol/L (3.5-5.0); SODIUM 133 mmol/L (135-145); TOTAL PROTEIN 6.3 g/dL (6.7-8.2)
[2017-06-20 06:16] LABS: CALCIUM, IONIZED 0.9 mmol/L (1.15-1.33); CREATININE 7.3 mg/dL (0.4-1.0); VBG PH 7.231 (7.31-7.41)
[2017-06-20] MEDS: SODIUM CHLORIDE FLUSH 0.9% 10 ML SYRINGE IVP SCH ×2 (06:45→09:10)
[2017-06-20 07:41] VITALS: BP 164/69
--- NOTE | 2017-06-20 07:50 | Discharge Plan ---
Discharge Plan Disposition: 02 Transfer Acute Care Hosp Condition: Serious Prescriptions: Clindamycin in 0.9 % Sod Chlor [Clindamycin 600 mg/50 ml-Ns] 600 mg IV Q12H #10 piggyback Fluticasone [Flonase] 1 sprays BARRY DAILY #3 bottle Diet: Diabetic Activity Restrictions: No Restrictions Shower Restrictions: No Driving Restrictions: No Weight Bearing: Full Weight Additional Instructions or Follow Up instructions: Transfer to [facility] for Nephrology. Follow discharge instruction from that facility. No Smoking: If you smoke, Please STOP! Call for help. Follow-up with: LITA HAGAN MD [Primary Care Provider] -
--- NOTE | 2017-06-20 07:52 | DISCHARGE SUMMARY ---
Discharge Summary Admit Date: 06/16/17 Discharge Date: 06/20/17 Discharging Provider: SHARLENE Carr Primary Care Provider: Femi Kessler Code Status: Attempt Resuscitation Condition at Discharge: Serious Discharge Disposition: 02 Transfer Acute Care Hosp - DIAGNOSES Admission Diagnoses: Cellulitis of left lower limb (L03.116) Cutaneous abscess of left foot (L02.612) Type 2 diabetes mellitus with unspecified complications (E11.8) Allergic rhinitis, unspecified (J30.9) Morbid (severe) obesity due to excess calories (E66.01) Discharge Diagnoses with Status of Each Condition: (1) EVIN (acute kidney injury) Impression: Patient appeared to be slightly clinically un-well, so follow up labs were ordered. In addition, an abdominal CT with contrast was ordered, a retroperitineal US due to complaints of decreased urine output. Creatinine resulted elevated from previous value of 0.7 to now 7.3. Repeat lab confirmed. Suspect AIN caused by vanco & pipercillin-tazobactam, Zosyn & vanco discontinued. Vanco trough was elevated at the time of discontinuation. Plan: NS IV bolus, oral contrast for abdominal CT, 40mg IV lasix x2, and re- check BMP. Nephrology from [facility] was called who recommends urgent transfer to higher level of care. (2) Abdominal pain Impression: Upon admission, patient admits to feeling "bloated". Simethicone ordered and appropriate antacids to control symptoms. It was thought to be likely due to cellulitis. Today abdominal pain was increased and localized to bilateral low abdomen during exam. Plan: Abdominal/pelvis CT was ordered with oral contrast only in light of EVIN, and was non-revealing of anything acute, although a fatty liver was noted. See imaging results below for full result. (3) Cellulitis of left lower extremity Impression: In the days prior to this admission, patient was in her bathroom and noticed her leg to appear "sunburnt". She has a white floor, so this really stood out to her. The next day she came to our ED, was treated with antibiotics and sent home to finish with oral antibiotics. Started having fever/chills, headache, increased LLE pain and now noticed a blister forming on the anterior aspect of foot between the largest toe and the second toe. MRI of left foot showed a blacked out area that was noted by tech. Radiologist suggested an x-ray for possible metal object interference. This surprisingly showed sewing needles, so Dr. Greene-Ortho surgery took patient to OR on 06/17, with a successful removal with new wound culture sent. Overall appearance of leg much improved, with the affected area the only area of concern. Residual pitting edema left greater than right. Plan: sensitivities are pending from second sample. Continue IV antibiotics, that have been changed due to recent EVIN and is now Clindamycin IV. (4) Abscess of left foot excluding toes Impression: Blister like formation noted on left foot between great toe and second toes, so lanced on admission in ED, with fluid drainage. Dr. Greene removed 2 sewing needles in OR. Culture results showed staph aureus and new cultures obtained in OR. Plan: Continue with dressing changes, now post-op since 06/17. (5) Diabetes mellitus type 2 with complications Impression: Patient is insulin resistant, and Lantus dose increased from 84 units BID to 88 units BID. HgA1C was noted to be elevated to 10 on admission. Patient admits to non-compliance. Plan: continue Lantus and SSI. Encourage oral intake. (6) Allergic sinusitis Impression: Patient complains of left ear pain that started about the same time as her chief complaint. Upon exam with otoscope, fluid is noted behind bilateral tympanic membranes. Plan: Afrin nasal spray for the next 3 days, Malgorzata PO started, but discontinued due to lack of improvement. Now remains on Flonase daily. (7) History of PCOS Impression: Patient has had this disease since early adult sin. She notes that she has a current ovarian cyst that needs to be removed soon. She also admits to infrequent spotting related to this cyst. No pain with palpation. Plan: Monitor for signs of explosion. Control pain. Encourage activity. (8) Morbid obesity with BMI of 45.0-49.9, adult Impression: Patient has a current BMI of 46.1. Plan: continue daily weights. Controlling blood sugars at home may improve BMI. Plan for URGENT medical transfer to Dr. Madie Lambert to accept care, due to worsening kidney function. - HPI History of Present Illness: Nicci Otto is a morbidly-obese 56 year old female who suffers from long- standing diabetes. She most recently was seen in the ED 2 days ago for left leg cellulitis. She was administered Ancef and Augmentin to go which she has been taking with minimal to no side effects. Since then her cellulitis has progressed and she is gotten more of a fluid collection on the top of the left foot. She admits to chills, nausea with vomiting, headache, generalized malaise and diarrhea that developed soon after returning home from the ED the first time. Once in the ED the MD lanced the skin on top of her left foot between the first and second toe. A wound culture was sent to lab and is pending. She was placed on vancomycin IV and is admitted to the medical floor for further IV therapy, blood sugar control, and prevention of wound progression. - HOSPITAL COURSE Hospital Course: Patient was admitted on 06/16/17 after failed out patient PO antibiotics for LLE cellulitis. Admitted after having fever/chills, weakness. Taken to OR for debridement and removal of 2 sewing needles on 06/17/17. Vanco and zosyn was started upon admission. Vanco was discontinued on 06/17 @ 1700, based on sensitivites of 1st ED wound sample, and remained on zosyn until 2nd wound culture set was to result. Then on 06/19/17 patient admitted to "feeling tired all day", so labs were drawn with less urine out put. Patient straight cathed for only 50ml of clear urine. Creatinine was elevated from 0.7 to 6.4, so zosyn was STOPPED, a retroperitineal US and abdominal/pelvic CT w/ oral contrast only was ordered. Lasix x2 IV was given, fluid bolus, and indwelling raman for accurate I/O. Since no improvement this AM, [facility] transfer per nephrology for higher level of care via ambulance. Patient approved with no changes in mental status thus far. - ALLERGIES Allergies/Adverse Reactions: Allergies Allergy/AdvReac Type Severity Reaction Status Date / Time No Known Drug Allergies Allergy Verified 06/16/17 15:45 - MEDICATIONS Home Medications: Ambulatory Orders Medication Instructions Recorded Confirmed Amitriptyline [Elavil] 25 mg PO DAILY 06/14/17 06/16/17 Aspirin 81 mg PO DAILY 06/14/17 06/16/17 Omeprazole 40 mg PO DAILY 06/14/17 06/16/17 Clindamycin in 0.9 % Sod Chlor 600 mg IV Q12H #10 piggyback 06/20/17 [Clindamycin 600 mg/50 ml-Ns] Fluticasone [Flonase] 1 sprays BARRY DAILY #3 bottle 06/20/17 Insulin Aspart [NovoLOG] 2 - 10 unit SUBQ 06/20/17 0800,1200,1700,2100 pen Insulin Glargine [Lantus Solostar] 88 unit SUBQ BID pen 06/20/17 Polyethylene Glycol 3350 [Miralax] 17 gm PO DAILY packet 06/20/17 - PHYSICAL EXAM AT DISCHARGE General Appearance: positive: No acute distress, Alert Eyes Bilateral: positive: Normal inspection, PERRL ENT: positive: ENT inspection nml, Pharyngeal erythema, Dry mucous membranes Neck: positive: Nml inspection, Thyroid nml, No JVD Respiratory: positive: Chest non-tender, No respiratory distress, Breath sounds nml Cardiovascular: positive: Regular rate & rhythm, No gallop, Systolic murmur Peripheral Pulses: positive: 1+ Abdomen: positive: Guarding, Rebound, Hepatomegaly, Other (tympanic, non-tender) Rectal: positive: Non-tender Back: positive: Nml inspection Skin: positive: Color nml, No rash, Warm, Dry, Other (Flushed cheeks.) Extremities: positive: Full ROM, Pedal edema (chronic BLE edema, left greater than right due to cellulitis), Joint swelling Neurologic/Psychiatric: positive: Oriented x3, CN's nml (2-12), Motor nml, Sensation nml, Depressed mood/affect Reflexes: Bicep (R): 3+, Bicep (L): 3+ - LABS Result Diagrams: 06/20/17 05:36 06/20/17 05:36 - DIAGNOSTIC IMAGING Diagnostic Imaging Results: Final report reviewed Diagnostic Imaging Results Comments: An MRI was attempted on the day of admission, but could not be completed due to suspected metal in her toes. Radiologist suggested a regular x-ray. X-ray of left foot 06/16/17: FINDINGS: Frontal and lateral views of the left foot demonstrate soft tissue swelling between the 1st and 2nd toes and dorsally. There are two linear metallic foreign bodies in the soft tissues between the 1st and 2nd toes, likely representing fractured needles. Mild osteoarthritis is seen in the 1st metatarsophalangeal joint. No definite subcutaneous gas is seen. Vascular calcifications are present. Plantar calcaneal spurring is seen. IMPRESSION: SOFT TISSUE SWELLING, COMPATIBLE WITH SOFT TISSUE INFECTION. NO OSTEOLYSIS TO SUGGEST OSTEOMYELITIS. FRACTURED NEEDLES IN THE SOFT TISSUES BETWEEN THE 1ST AND 2ND TOES. After EVIN was suspected a retroperitoneal US was ordered on 06/19/17: FINDINGS : The right kidney measures 16.9 cm longitudinally and demonstrates normal echotexture. No evidence of stone, contour deforming mass or hydronephrosis. The left kidney measures 13.6 cm longitudinally and demonstrates no evidence of stone, mass or hydronephrosis. Prevoid bladder volume 172 mL. Postvoid not obtained. A faint right ureteral jet is seen. No identifiable left ureteral jet. Hyperechoic liver indicating fatty infiltration. There is an incidental 1.3 x 1.4 x 1.8 cm hypoechoic, vascular focus in the left hepatic lobe. IMPRESSION: 1. No evidence of renal stone, mass or hydronephrosis. Both kidneys appear enlarged, potential etiologies include but not limited to diabetic nephropathy, acute nephritis and multiple myeloma. 2. Indeterminate 1.8 cm hypoechoic lesion in the left hepatic lobe, new since the previous CT. Multiphase liver CT or MRI recommended for further characterization. Patient complained of increased abdominal girth, poor appetite and mild nausea without vomiting so abdominal/pelvic CT with oral contrast only in light of newly discovered EVIN was ordered on 06/19/17: FINDINGS: Lung Bases: Peribronchial nodular airspace infiltrate seen at the right lung base. No pleural effusion. Liver: Decreased liver attenuation suggesting fatty infiltration. There is a 1.2 cm focus of nodular sparing of the hepatic dome. Gallbladder/Bile Ducts: Unremarkable. Spleen: Normal. Pancreas: Normal. Adrenal Glands: Normal. Kidneys: Normal. No masses or hydronephrosis. Peritoneal Cavity/Bowel: Diverticulosis, no diverticulitis. No bowel obstruction , free air or fluid. The appendix is well visualized and normal. Pelvic Organs: Urinary bladder decompressed containing a catheter. There is a 4.8 x 7.5 cm tubular cystic structure within the posterior right pelvis. This is continuous with the uterus and possibly right ovary. Vasculature: No aneurysms or other significant abnormality. Bones: No significant abnormality. Other: None. IMPRESSION: 1. Peribronchial nodular airspace opacities throughout the right lung base most likely secondary to pneumonia. 2. Fatty liver. 3. Diverticulosis. 4. Tubular simple 5 cm right pelvic cystic structure thought to represent either hydrosalpinx or ovarian cyst. Consider pelvic ultrasound for further characterization. - FOLLOW UP Follow Up: Likely pneumonia noted late last PM on CT scan. Lungs were clear this AM prior to transfer. Mild febrile state noted in the past 48 hours. No increased oxygen needs. VTAC noted on telemetry at 0451AM 16 beats, a symptomatic and no episodes since. Follow discharge instructions at accepting facility and per nephrology. - TIME SPENT Time Spent in Discharge (Minutes): 60
[2017-06-20] MEDS: POLYETHYLENE GLYCOL 3350 17 GM PACKET PO SCH (08:40)
[2017-06-20] MEDS: FLUTICASONE NASAL SPRAY NAS SCH (08:41)
[2017-06-20] MEDS: AMITRIPTYLINE 25 MG TABLET PO SCH (09:09)
[2017-06-20] MEDS: ASPIRIN CHEW 81 MG TABLET PO SCH (09:09)
[2017-06-20] MEDS: INSULIN GLARGINE 300 UNIT/3 ML PEN SUBQ SCH (09:10)
[2017-06-20] MEDS: PANTOPRAZOLE 40 MG VIAL IV SCH (09:10)
[2017-06-20] MEDS: HEPARIN 5,000 UNIT/ML VIAL SUBQ SCH (09:11)
[2017-06-20] MEDS: INSULIN ASPART 300 UNIT/3 ML PEN SUBQ SCH (09:34)
--- NOTE | 2017-06-20 10:46 | XRAY Report ---
FRONTAL CHEST: 06/20/2017 CLINICAL INDICATION: Worsening renal failure, hypoxia. COMPARISON: 11/06/2007. FINDINGS: Frontal view of the chest demonstrates a normal cardiac silhouette. There are new intersti tial opacities and pulmonary vascular prominence, suggestive of mild congestive failure. No effusion or pneumothorax is present. IMPRESSION: MILD PULMONARY VASCULAR CONGESTION AND INTERSTITIAL OPACITIES, SUGGESTIVE OF FLUID OVERL OAD. NO CARDIOMEGALY. JOB #: [id number] EXT JOB #:
[2017-06-22 13:22] LABS: COMPLEMENT COMPONENT C3C 189 mg/dL (90-180); COMPLEMENT COMPONENT C4C 25 mg/dL (16-47)
[2017-06-22 14:11] LABS: ANA SCREEN NEGATIVE (NEGATIVE)
[2017-06-22 18:31] LABS: ALPHA 1 GLOBULIN 0.6 g/dL (0.2-0.3); ALPHA 2 GLOBULIN 1.1 g/dL (0.5-0.9); BETA 1 GLOBULIN 0.4 g/dL (0.4-0.6); BETA 2 GLOBULIN 0.3 g/dL (0.2-0.5); GAMMA GLOBULIN 0.6 g/dL (0.8-1.7)
[2017-06-22 23:01] LABS: ALPHA 1 GLOBULIN 0.6 g/dL (0.2-0.3); ALPHA 2 GLOBULIN 1.1 g/dL (0.5-0.9); BETA 1 GLOBULIN 0.4 g/dL (0.4-0.6); BETA 2 GLOBULIN 0.3 g/dL (0.2-0.5); GAMMA GLOBULIN 0.6 g/dL (0.8-1.7)
== END 2017-06-20 09:20 | disposition short-term general hospital (02) | DRG 602 ==
LOC: ED 15:39 → MS2 16:31
PROVIDERS: ADMIT Nurse Practitioner; ATTEND Nurse Practitioner
PROC: 0HCNXZZ Extirpation of Matter from Left Foot Skin, External Approach (ICD-10-PCS; principal; 2017-06-18 08:00)
DX: L03.116 Cellulitis of left lower limb (principal); J18.9 Pneumonia, unspecified organism; N17.9 Acute kidney failure, unspecified; Z68.42 Body mass index [BMI] 45.0-49.9, adult; L02.612 Cutaneous abscess of left foot; S91.342A Puncture wound with foreign body, left foot, initial encounter; W26.8XXA Contact with other sharp object(s), not elsewhere classified, initial encounter; W45.8XXA Other foreign body or object entering through skin, initial encounter; E11.42 Type 2 diabetes mellitus with diabetic polyneuropathy; E11.65 Type 2 diabetes mellitus with hyperglycemia; E11.628 Type 2 diabetes mellitus with other skin complications; B95.61 Methicillin susceptible Staphylococcus aureus infection as the cause of diseases classified elsewhere; R10.30 Lower abdominal pain, unspecified; K76.0 Fatty (change of) liver, not elsewhere classified; J30.9 Allergic rhinitis, unspecified; E66.01 Morbid (severe) obesity due to excess calories; E28.2 Polycystic ovarian syndrome; K57.30 Diverticulosis of large intestine without perforation or abscess without bleeding; Z91.19 Patient's noncompliance with other medical treatment and regimen; Z79.4 Long term (current) use of insulin; Z79.82 Long term (current) use of aspirin; Z79.2 Long term (current) use of antibiotics; Z79.899 Other long term (current) drug therapy
CPT/HCPCS: 10060; 36415; 51701; 71010; 74176; 76770; 80048; 80053; 81001; 82043; 82164; 82330; 82550; 82565; 82570; 83036; 83605; 83690; 83735; 84100; 84133; 84155; 84165; 84300; 85025; 86038; 86160; 87040; 87070; 87205; 96365; 99283; 99284

== ENCOUNTER 2017-06-20 09:21 | Outpatient (CLI) | payer OTHER | END 2017-06-20 09:22 | disposition short-term general hospital (02) | LOC: EMS 09:21 | PROVIDERS: ATTEND Surgery | DX: N17.9 Acute kidney failure, unspecified (principal) | CPT/HCPCS: A0425; A0428 ==

== ENCOUNTER 2017-10-26 19:57 | Outpatient (CLI) | payer OTHER ==
--- NOTE | 2017-10-27 11:05 | Ultrasound Report ---
PELVIC ULTRASOUND: 10/26/2017 HISTORY: Postmenopausal bleeding. COMPARISON: CT scan abdomen and pelvis 06/19/2017 and MRI pelvis 02/01/2008. TECHNIQUE: Real-time scanning by the aviation tactical readiness officer with saved static images reviewed. Transabdominal scanning for global evaluation, transvaginal scanning for detailed assessment of the endometrium and ovaries. FINDINGS: The study is somewhat limited due to patient body habitus. Uterus anteverted configuration 10.4 x 5 x 5.7 cm, volume 158 mL. Anterior intramural fibroid approximately 3.6 x 3 x 2.6 cm, increased since 2007. Endometrial echo is not well seen, but measures in the range of 4 mm. There is a large right tubular cystic structure with septations versus two adjacent cysts measuring 7.3 x 6.2 x 5 cm. This is similar in appearance compared to the 06/19/2017 CT, but has enlarged compared to the 02/01/2008 MRI. Small amount of adjacent ovarian tissue is seen. The left ovary measures 3.2 x 1.9 x 3 cm, volume 9.6 mL, grossly negative in appearance without left adnexal masses. Free fluid: None. IMPRESSION: LARGE RIGHT ADNEXAL CYSTIC STRUCTURE HAS INCREASED IN SIZE SINCE BUT IS SIMILAR IN APPEARANCE TO 06/19/2017. DIFFERENTIAL WOULD INCLUDE DILATED FALLOPIAN TUBE AND MINIMALLY COMPLEX RIGHT OVARIAN CYST. ANTERIOR UTERINE FIBROID SLIGHTLY INCREASED IN SIZE SINCE 02/01/2008. ENDOMETRIAL ECHO THICKNESS NOT WELL EVALUATED, MEASURES APPROXIMATELY 4 MM. SUGGEST FOLLOWUP PELVIC ULTRASOUND IN 3 TO 6 MONTHS. TD: 10/27/2017 11:05 SHIRA
== END 2017-10-26 19:58 | disposition home or self-care (01) ==
LOC: DI 19:57
PROVIDERS: ATTEND Obstetrics & Gynecology
DX: N94.89 Other specified conditions associated with female genital organs and menstrual cycle (principal); D25.1 Intramural leiomyoma of uterus
CPT/HCPCS: 76830; 76856

== ENCOUNTER 2019-07-19 07:20 | Outpatient (CLI) | payer OTHER | END 2019-07-19 07:21 | disposition home or self-care (01) | LOC: DI 07:20 | PROVIDERS: ATTEND Internal Medicine | DX: Z53.9 Procedure and treatment not carried out, unspecified reason (principal) ==

== ENCOUNTER 2020-01-21 15:49 | Emergency (ER) | payer OTHER ==
[2020-01-21 17:44] LABS: BASOPHILS # (AUTO) 0.1 10^3/uL (0.0-0.1); BASOPHILS % (AUTO) 0.6 %; EOSINOPHILS # (AUTO) 0.2 10^3/uL (0.0-0.7); EOSINOPHILS % (AUTO) 1.8 %; HGB - HEMOGLOBIN 15.5 g/dL (12.0-16.0); LYMPHOCYTES # (AUTO) 2.2 10^3/uL (1.5-3.5); LYMPHOCYTES % (AUTO) 22.5 %; MEAN CORPUSCULAR HEMOGLOBIN 27.8 pg (27.0-31.0); MEAN CORPUSCULAR HGB CONC 31.5 g/dL (32.0-36.0); MEAN CORPUSCULAR VOLUME 88.2 fL (81.0-99.0); MONOCYTES # (AUTO) 0.9 10^3/uL (0.0-1.0); MONOCYTES % (AUTO) 8.9 %; NEUTROPHILS # (AUTO) 6.4 10^3/uL (1.5-6.6); NEUTROPHILS % (AUTO) 65.9 %; PLT - PLATELET COUNT 231 10^3/uL (130-450); RED BLOOD COUNT 5.58 10^6/uL (4.20-5.40); RED CELL DISTRIBUTION WIDTH 13.4 % (12.0-15.0); WHITE BLOOD COUNT 9.8 x10^3/uL (4.8-10.8)
[2020-01-21 18:04] LABS: ALBUMIN 3.4 g/dL (3.2-5.5); ALBUMIN/GLOBULIN RATIO 0.9 (1.0-2.2); BILIRUBIN,TOTAL 0.4 mg/dL (0.2-1.0); CREATININE 0.8 mg/dL (0.4-1.0); CRP - C-REACTIVE PROTEIN 12.4 mg/dL (0-1.0)
--- NOTE | 2020-01-21 18:14 | ED Physician Documentation ---
History of Present Illness - Stated complaint Stated Complaint: LT FOOT PX - Chief complaint Chief Complaint: General - History obtained from History obtained from: Patient - Additonal information Additional information: 59-year-old woman with longstanding diabetes and neuropathy from same walks without socks on about 5 days ago and developed an ulcerating lesion on the tip of the left great toe with reactive cellulitis. No fevers. No pain. 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: Ovarian cysts (Plan for surgery in July-pending HgA1C) : Other (stable left inguinal hernia) HEENT: Chronic sinusitis, Other (acute fluid accumulation left greater than right tympanic membrane.) Psych: None Musculoskeletal: Fatigue Derm: None - Past Surgical History Past Surgical History: Yes General: Colonoscopy, EGD HEENT: Cataracts, Tonsil/Adenoidectomy - Present Medications Home Medications: Ambulatory Orders Medication Instructions Recorded Confirmed Amitriptyline [Elavil] 25 mg PO DAILY 06/14/17 06/16/17 Aspirin 81 mg PO DAILY 06/14/17 06/16/17 Omeprazole 40 mg PO DAILY 06/14/17 06/16/17 Clindamycin in 0.9 % Sod Chlor 600 mg IV Q12H #10 piggyback 06/20/17 [Clindamycin 600 mg/50 ml-Ns] Fluticasone [Flonase] 1 sprays BARRY DAILY #3 bottle 06/20/17 Insulin Aspart [NovoLOG] 2 - 10 unit SUBQ 06/20/17 0800,1200,1700,2100 pen Insulin Glargine [Lantus Solostar] 88 unit SUBQ BID pen 06/20/17 polyethylene glycoL 3350 [Miralax] 17 gm PO DAILY packet 06/20/17 Cephalexin [Keflex] 500 mg PO Q6H #40 capsule 01/21/20 - Allergies Allergies/Adverse Reactions: Allergies Allergy/AdvReac Type Severity Reaction Status Date / Time No Known Drug Allergies Allergy Verified 06/16/17 15:45 - Social History Does the pt smoke?: No Smoking Status: Never smoker Does the pt drink ETOH?: No Does the pt have substance abuse?: No - Immunizations Immunizations are current?: Yes - POLST Patient has POLST: No POLST Status: Full Code PD ED PE NORMAL - Vitals Vital signs reviewed: Yes - General General: Alert and oriented X 3, No acute distress - HEENT HEENT: PERRL, EOMI - Neck Neck: Supple, no meningeal sign, No bony TTP - Cardiac Cardiac: RRR, No murmur - Respiratory Respiratory: No respiratory distress, Clear bilaterally - Abdomen Abdomen: Non tender - Back Back: No CVA TTP, No spinal TTP - Extremities Extremities: Other (She has about a 3 cm slightly purulent ulcer at the tip of the left great toe with cellulitis up to the ankle.) - Neuro Neuro: Alert and oriented X 3, Normal speech - Psych Psych: Normal mood, Normal affect Results - Vitals Vitals: Vital Signs - 24 hr 01/21/20 15:55 Temperature 36.4 C L Heart Rate 106 H Respiratory 20 Rate Blood Pressure 176/74 H O2 Saturation 96 Oxygen O2 Source Room air - Labs Labs: Laboratory Tests 01/21/20 01/21/20 01/21/20 17:38 17:38 17:38 WBC 9.8 RBC 5.58 H Hgb 15.5 Hct 49.2 H MCV 88.2 MCH 27.8 MCHC 31.5 L RDW 13.4 Plt Count 231 MPV 10.0 Neut # (Auto) 6.4 Lymph # (Auto) 2.2 Preston # (Auto) 0.9 Eos # (Auto) 0.2 Baso # (Auto) 0.1 Absolute Nucleated RBC 0.00 Nucleated RBC % 0.0 ESR 1 Sodium 139 Potassium 3.9 Chloride 98 L Carbon Dioxide 34 H Anion Gap 7.0 BUN 18 Creatinine 0.8 Estimated GFR (MDRD) 74 L Glucose 252 H Calcium 9.0 Total Bilirubin 0.4 AST 14 ALT 18 Alkaline Phosphatase 123 H C-Reactive Protein 12.4 H Total Protein 7.0 Albumin 3.4 Globulin 3.6 Albumin/Globulin Ratio 0.9 L Lipase 24 - Rads (name of study) L foot 3v XR Radiology: EMP read contemporaneously (STS no FB or obvious osteo) PD MEDICAL DECISION MAKING - ED course ED course: 59-year-old woman with diabetes and neuropathy related to same has a diabetic foot infection emanating from the left great toe. A culture was done. Labs are relatively reassuring with no leukocytosis and her sed rate is normal, CRP only modestly elevated. She was worried about a potential foreign body, she stepped on needles in the past and did not know it, and x-ray was done without radiopaque foreign body. She preferred a trial of outpatient management and she was given 2 g of Ancef IV here. Departure - Departure Disposition: Home, Self Care Clinical Impression: Diabetes mellitus type 2 with complications, Cellulitis of left lower extremity Condition: Good Record reviewed to determine appropriate education?: Yes Instructions: Cellulitis Dc Prescriptions: Cephalexin [Keflex] 500 mg PO Q6H #40 capsule Comments: Talk with your doctor about a referral to the wound care clinic. Return for new or worsening symptoms, especially fevers or increasing redness. Elevate as much as possible. We are performing a wound culture, the results should be done in 48-72 hours. If antibiotic change is necessary we will call you. Return if worse in the meantime, especially if you develop increased pain, fevers, cannot keep down the medication.
[2020-01-21] MEDS ORDERED: ceFAZolin 2 GM in SODIUM CHLORIDE 0.9% 100ML 100 ML IV STA (18:15)
--- NOTE | 2020-01-21 18:39 | XRAY Report ---
PROCEDURE: Foot 3 View LT INDICATIONS: toe infection TECHNIQUE: 3 views of the foot were acquired. COMPARISON: X-ray of left foot, 06/17/2017 FINDINGS: Bones: No fractures or dislocations. No suspicious bony lesions. Soft tissues: No tibiotalar joint effusion. Achilles tendon appears normal. Soft tissue swelling o f the great toe. IMPRESSION: Soft tissue swelling. No definitive bony erosion. If clinical suspicion for osteomyelitis is present, MRI or triple phase bone scan is recommended for further evaluation. Reviewed by: Holly Dunbar MD on 01/21/2020 6:37 PM PDT Approved by: Holly Dunbar MD on 01/21/2020 6:37 PM PDT Station ID: [id number]
[2020-01-21 19:31] VITALS: BP 144/80
== END 2020-01-21 19:30 | disposition home or self-care (01) ==
LOC: ED 15:49
DX: L03.116 Cellulitis of left lower limb (principal); L03.032 Cellulitis of left toe; E11.621 Type 2 diabetes mellitus with foot ulcer; L97.529 Non-pressure chronic ulcer of other part of left foot with unspecified severity; E11.51 Type 2 diabetes mellitus with diabetic peripheral angiopathy without gangrene; E11.42 Type 2 diabetes mellitus with diabetic polyneuropathy; Z79.4 Long term (current) use of insulin; Z79.82 Long term (current) use of aspirin
CPT/HCPCS: 36415; 80053; 83690; 85025; 85651; 86140; 87070; 87077; 87181; 87205; 96365; 99281

== ENCOUNTER 2020-03-07 08:47 | Day surgery (SDC) | payer OTHER ==
[2020-03-07 09:16] VITALS: BP 163/77
--- NOTE | 2020-03-07 10:27 | XRAY Report ---
PROCEDURE: Chest for Line Placement INDICATIONS: PICC TECHNIQUE: One view of the chest was acquired. COMPARISON: 06.20.17 chest x-ray examination FINDINGS: Surgical changes and devices: None. Lungs and pleura: No pleural effusions or pneumothorax. Lungs are clear. Mediastinum: Mediastinal contours appear normal. Heart size is normal. Bones and chest wall: No suspicious bony lesions. Overlying soft tissues appear unremarkable. IMPRESSION: No acute process. Reviewed by: Andrzej Fernandes MD on 03/07/2020 10:26 AM PDT Approved by: Andrzej Fernandes MD on 03/07/2020 10:26 AM PDT Station ID: [id number]
--- NOTE | 2020-03-07 11:02 | ANESTHESIA PROCEDURE NOTE ---
Anesth Central Line Template - Central Line Central Line Preparation: Consent Obtained, Time out completed, Ultrasound used, Sterile prep and drape Central line location: Right Basilic Central line type: PICC Double Lumen Central line catheter tip site resides: Superior vena cava (SVC) Central line aftercare: Secured, Placement confirmed, No pneumothorax, No complications, Bundle checklist complete, Pt tolerated well Other Info/Details: Pt Id/d, consent. R UE prep and drape after mask, gown, gloves. R basilic v accessed with US attemptx1. Wire threaded easily. Cath cut to 38cm. Dilator, cath threaded using tip tracker. Unable to float catheter down SVC. Continually headed R IJ, as seen on first PXCR. Attempt to manipulate catheter down unsuccessful x2. Catheter secured and tegaderm for transport to radiology for live flouro placement. Upon positioning patient on the table for procedure, first c-arm shot reveals that the catheter tip has headed caudad to the SVC without intervention. Confirmed with in house radiologist. Both caps/ports easily aspirate and flush blood. Stat lock secured and tegaderm placed. Ok to use PICC. Pt tolerated the procedure without complaint or complication.
--- NOTE | 2020-03-08 06:23 | XRAY Report ---
PROCEDURE: Fluoro Independent Procedure INDICATIONS: PICC LINE PLACEMENT TECHNIQUE: Single view of the chest COMPARISON: None. FINDINGS: Right PICC line is seen with the tip not well visualized although probably projecting at the upper SV C IMPRESSION: Right PICC line with the tip probably projecting at the upper SVC. Reviewed by: Evgeny Hearn MD on 03/07/2020 11:02 AM PDT Approved by: Evgeny Hearn MD on 03/07/2020 11:02 AM PDT Station ID: [id number]
== END 2020-03-07 08:48 | disposition home or self-care (01) ==
LOC: SDS 08:47
PROVIDERS: ATTEND Registered Nurse
DX: M86.9 Osteomyelitis, unspecified (principal)
CPT/HCPCS: 36569; 71045; C1751; 76000

== ENCOUNTER 2020-03-15 21:52 | Emergency (ER) | payer OTHER ==
--- NOTE | 2020-03-15 22:11 | ED Physician Documentation ---
PD HPI URI - Stated complaint Stated Complaint: NAUSEA, "FEELS UNWELL" - Chief complaint Chief Complaint: General - History obtained from History obtained from: Patient - History of Present Illness Timing - onset: How many hours ago (several), Today Timing duration: Hours Timing details: Gradual onset Associated symptoms: Fever (She had a feeling of general malaise with nausea diffuse myalgias and a feeling of chills. She took her temperature at 99. She denies any cough or dysuria. She is noticing some vaginal discharge which she thinks is yeast.She had gotten an IV dose of daptomycin a few hours for 8th dose), Chills, Other (muscle aches diffusely) Contributing factors: No: Sick contact, Travel, Immunocompromised Improves by: Rest Similar symptoms before: Has not had sx before Recently seen: Clinic (She is being treated for an osteomyelitis of her toe with daily daptomycin. She had a PICC line re-placed 3 days ago. She has gotten 7 or 8 doses so far of the daptomycin.) Review of Systems Constitutional: reports: Chills, Myalgias, Fatigue Nose: denies: Rhinorrhea / runny nose, Congestion Throat: denies: Sore throat Respiratory: denies: Cough GI: reports: Nausea. denies: Vomiting, Diarrhea : reports: Discharge (mild white with labial itchiness today). denies: Dysuria Skin: denies: Rash, Lesions Musculoskeletal: denies: Extremity swelling Neurologic: reports: Generalized weakness. denies: Focal weakness, Numbness, Near syncope, Altered mental status, Headache PD PAST MEDICAL HISTORY - Past Medical History Cardiovascular: None, Peripheral Vascular Disease, Murmur Respiratory: Pneumonia Endocrine/Autoimmune: Type 2 diabetes GI: [employer]: Ovarian cysts (Plan for surgery in July-pending HgA1C) : Other HEENT: Chronic sinusitis, Other Psych: None Musculoskeletal: Fatigue Derm: None - Past Surgical History Past Surgical History: Yes General: Colonoscopy, EGD HEENT: Cataracts, Tonsil/Adenoidectomy - Present Medications Home Medications: Ambulatory Orders Medication Instructions Recorded Confirmed Amitriptyline [Elavil] 25 mg PO DAILY 06/14/17 03/07/20 Aspirin 81 mg PO DAILY 06/14/17 03/07/20 Omeprazole 40 mg PO DAILY 06/14/17 03/07/20 Insulin Aspart [NovoLOG] 2 - 10 unit SUBQ 06/20/17 03/07/20 0800,1200,1700,2100 pen Amox/Clav 875/125 [Augmentin 1 tab ORAL BID 03/07/20 03/07/20 875/125] Fluconazole [Diflucan] 150 mg PO Q3D #3 tablet 03/16/20 Ondansetron Odt [Zofran] 4 mg TL Q6H PRN #10 tablet 03/16/20 - Allergies Allergies/Adverse Reactions: Allergies Allergy/AdvReac Type Severity Reaction Status Date / Time Iodinated Contrast Media Allergy Unknown Verified 03/15/20 22:03 codeine AdvReac Emesis Verified 03/15/20 22:03 - Social History Does the pt smoke?: No Smoking Status: Never smoker Does the pt drink ETOH?: No Does the pt have substance abuse?: No - Immunizations Immunizations are current?: Yes - POLST Patient has POLST: No POLST Status: Full Code PD ED PE NORMAL - Vitals Vital signs reviewed: Yes - General General: Alert and oriented X 3, No acute distress (She appears a little uncomfortable related to general myalgias.), Well developed/nourished - HEENT HEENT: Ears normal, Moist mucous membranes, Pharynx benign - Neck Neck: Supple, no meningeal sign, No adenopathy - Cardiac Cardiac: No murmur. No: RRR (regular but tachycardic) - Respiratory Respiratory: Clear bilaterally - Abdomen Abdomen: Soft, Non tender, Non distended - Female Female : Deferred - Back Back: No CVA TTP - Derm Derm: Normal color, Warm and dry - Extremities Extremities: No tenderness to palpate, Normal ROM s pain, No edema, No calf tenderness / cord, Other (The wrapping on her foot is left in place. Proximal to it does not show any redness swelling or tenderness to suggest cellulitis.) - Neuro Neuro: Alert and oriented X 3, No motor deficit, Normal speech Results - Vitals Vitals: Vital Signs - 24 hr 03/15/20 03/16/20 21:57 00:54 Temperature 37 C 37.1 C Heart Rate 121 H 108 H Respiratory 20 22 Rate Blood Pressure 153/99 H 177/88 H O2 Saturation 97 99 Oxygen O2 Source Room air - Labs Labs: Laboratory Tests 03/15/20 03/15/20 03/15/20 22:45 22:45 22:45 WBC 10.1 RBC 5.11 Hgb 14.2 Hct 44.9 MCV 87.9 MCH 27.8 MCHC 31.6 L RDW 13.2 Plt Count 159 MPV 10.5 Neut # (Auto) 8.4 H Lymph # (Auto) 0.9 L Morgan # (Auto) 0.6 Eos # (Auto) 0.1 Baso # (Auto) 0.0 Absolute Nucleated RBC 0.00 Nucleated RBC % 0.0 Sodium 135 Potassium 3.8 Chloride 98 L Carbon Dioxide 28 Anion Gap 9.0 BUN 14 Creatinine 0.7 Estimated GFR (MDRD) 86 L Glucose 251 H Lactic Acid 2.2 Calcium 8.8 Magnesium 1.6 L Total Bilirubin 0.6 AST 28 ALT 38 Alkaline Phosphatase 99 Total Creatine Kinase Total Protein 6.4 L Albumin 3.4 Globulin 3.0 Albumin/Globulin Ratio 1.1 Lipase 26 Urine Color Urine Clarity Urine pH Ur Specific [place] Urine Protein Urine Glucose (UA) Urine Ketones Urine Occult Blood Urine Nitrite Urine Bilirubin Urine Urobilinogen Ur Leukocyte Esterase Urine RBC Urine WBC Ur Squamous Epith Cells Urine Bacteria Urine Casts Ur Microscopic Review Urine Culture Comments C. glabrata (PCR) C. krusei (PCR) Katie species DNA T. vaginalis (PCR) Bact Vaginosis (PCR) 03/15/20 03/15/20 03/15/20 22:45 22:55 22:55 WBC RBC Hgb Hct MCV MCH MCHC RDW Plt Count MPV Neut # (Auto) Lymph # (Auto) Morgan # (Auto) Eos # (Auto) Baso # (Auto) Absolute Nucleated RBC Nucleated RBC % Sodium Potassium Chloride Carbon Dioxide Anion Gap BUN Creatinine Estimated GFR (MDRD) Glucose Lactic Acid Calcium Magnesium Total Bilirubin AST ALT Alkaline Phosphatase Total Creatine Kinase 28 Total Protein Albumin Globulin Albumin/Globulin Ratio Lipase Urine Color YELLOW Urine Clarity CLEAR Urine pH 6.0 Ur Specific [place] 1.025 Urine Protein >=300 H Urine Glucose (UA) >=1000 H Urine Ketones TRACE Urine Occult Blood TRACE-INTA Urine Nitrite NEGATIVE Urine Bilirubin NEGATIVE Urine Urobilinogen 0.2 (NORMAL) Ur Leukocyte Esterase NEGATIVE Urine RBC 0-5 Urine WBC 0-3 Ur Squamous Epith Cells MOD Squamous H Urine Bacteria Rare Urine Casts 3-5 Hyaline Casts Ur Microscopic Review INDICATED Urine Culture Comments NOT INDICATED C. glabrata (PCR) POSITIVE A C. krusei (PCR) NEGATIVE Katie species DNA NEGATIVE T. vaginalis (PCR) NEGATIVE Bact Vaginosis (PCR) NEGATIVE - Rads (name of study) No standard instances Radiology: Prelim report reviewed (no acute infiltrates), See rad report PD MEDICAL DECISION MAKING - ED course Complexity details: considered differential (Consider secondary infection such as bladder or pneumonia. Her foot infection has not increased in size nor developed cellulitis. Can test for COVID as well. Will assess for sepsis with lactate and blood count. Otherwise consider side effect of her antibiotic and will look for CK), d/w patient ED course: Epocrates lists myalgias and possible rhabdo as side effects to her daptomycin. Her CK is normal here. It may need reevaluating if she has persistent muscle pains more than a day or 2 or other symptoms develop. Departure - Departure Disposition: 01 Home, Self Care Clinical Impression: Myalgia, Nausea Condition: Stable Record reviewed to determine appropriate education?: Yes Follow-Up: Milli Ace MD [Primary Care Provider] - Prescriptions: Fluconazole [Diflucan] 150 mg PO Q3D #3 tablet Ondansetron Odt [Zofran] 4 mg TL Q6H PRN #10 tablet PRN Reason: Nausea / Vomiting Comments: You could use some ibuprofen 400 to 600 mg twice daily for the next few days. Use ondansetron if needed for nausea. Stay well-hydrated. Recheck if not improving well over the next 2 to 3 days and return sooner if worsening. See if there is any pattern of feeling worse after your antibiotic infusions. Otherwise also if this persists without any other symptoms developing, would wonder about a side effect of the antibiotic. The antibiotic you are taking can cause muscle aches and nausea according to a drug reference called Epocrates. If you have persistent muscle aches or worsening of it, recheck in a couple of days and we can repeat some blood tests. Diflucan every 3rd day x 2 for yeast vaginitis. Discharge Date/Time: 03/16/20 00:54
[2020-03-15] MEDS ORDERED: LACTATED RINGERS 1,000 ML IV STA (22:27)
[2020-03-15] MEDS ORDERED: ONDANSETRON 4 MG/2 ML VIAL IVP STA (22:29)
[2020-03-15 23:17] LABS: BASOPHILS % (AUTO) 0.4 %; EOSINOPHILS # (AUTO) 0.1 10^3/uL (0.0-0.7); EOSINOPHILS % (AUTO) 0.7 %; HGB - HEMOGLOBIN 14.2 g/dL (12.0-16.0); LYMPHOCYTES # (AUTO) 0.9 10^3/uL (1.5-3.5); LYMPHOCYTES % (AUTO) 8.9 %; MEAN CORPUSCULAR HEMOGLOBIN 27.8 pg (27.0-31.0); MEAN CORPUSCULAR HGB CONC 31.6 g/dL (32.0-36.0); MEAN CORPUSCULAR VOLUME 87.9 fL (81.0-99.0); MEAN PLATELET VOLUME 10.5 fL (7.9-10.8); MONOCYTES # (AUTO) 0.6 10^3/uL (0.0-1.0); MONOCYTES % (AUTO) 5.9 %; NEUTROPHILS # (AUTO) 8.4 10^3/uL (1.5-6.6); NEUTROPHILS % (AUTO) 83.4 %; PLT - PLATELET COUNT 159 10^3/uL (130-450); RED BLOOD COUNT 5.11 10^6/uL (4.20-5.40); RED CELL DISTRIBUTION WIDTH 13.2 % (12.0-15.0); WHITE BLOOD COUNT 10.1 x10^3/uL (4.8-10.8)
[2020-03-15 23:24] LABS: BILIRUBIN,URINE NEGATIVE (NEGATIVE); GLUCOSE, URINE (UA) >=1000 mg/dL (NEGATIVE); KETONES,URINE (UA) TRACE mg/dL (NEGATIVE); LEUKOCYTE ESTERASE, URINE NEGATIVE (NEGATIVE); NITRITE,URINE NEGATIVE (NEGATIVE); OCCULT BLOOD,URINE TRACE-INTA (NEGATIVE); PROTEIN,URINE >=300 mg/dL (NEGATIVE); UROBILINOGEN,URINE 0.2 (NORMAL) E.U./dL (NORMAL)
[2020-03-15 23:25] LABS: CLARITY,URINE CLEAR (CLEAR)
[2020-03-15 23:26] LABS: ALBUMIN 3.4 g/dL (3.2-5.5); ALBUMIN/GLOBULIN RATIO 1.1 (1.0-2.2); BILIRUBIN,TOTAL 0.6 mg/dL (0.2-1.0); CALCIUM 8.8 mg/dL (8.5-10.3); CREATININE 0.7 mg/dL (0.4-1.0); MAGNESIUM 1.6 mg/dL (1.7-2.8); TOTAL PROTEIN 6.4 g/dL (6.7-8.2)
[2020-03-15 23:31] LABS: BACTERIA,URINE Rare /HPF (None Seen); CASTS, URINE 3-5 Hyaline Casts /LPF; RBC,URINE 0-5 /HPF (0-5); SQUAMOUS EPITHELIAL CELL,UR MOD Squamous (<= Few)
[2020-03-15] MEDS ORDERED: FLUCONAZOLE 100 MG TABLET PO STA (23:41)
[2020-03-15] MEDS ORDERED: KETOROLAC 30 MG/ML VIAL IVP STA (23:51)
[2020-03-16 00:54] VITALS: BP 177/88
[2020-03-16 01:05] LABS: CANDIDA GROUP DNA NEGATIVE (NEGATIVE); CANDIDA KRUSEI DNA NEGATIVE (NEGATIVE); TRICHOMONAS VAGINALIS DNA NEGATIVE (NEGATIVE)
--- NOTE | 2020-03-16 08:30 | XRAY Report ---
PROCEDURE: Chest 1 View X-Ray INDICATIONS: malaise/chilled today TECHNIQUE: One view of the chest was acquired. COMPARISON: 06.20.17 chest x-ray examination. Chest x-ray examination dated FINDINGS: Surgical changes and devices: Right arm PICC is present, tip of which is in the upper SVC. Lungs and pleura: No pleural effusions or pneumothorax. Lungs are clear. Mediastinum: Mediastinal contours appear normal. Heart size is normal. Bones and chest wall: No suspicious bony lesions. Overlying soft tissues appear unremarkable. IMPRESSION: 1. No acute process. 2. Right arm PICC is within the upper SVC. Reviewed by: Andrzej Fernandes MD on 03/16/2020 8:28 AM PDT Approved by: Andrzej Fernandes MD on 03/16/2020 8:28 AM PDT Station ID: [id number]
== END 2020-03-16 00:54 | disposition home or self-care (01) ==
LOC: ED 21:52
DX: M79.10 Myalgia, unspecified site (principal); R11.0 Nausea; Z20.828 Contact with and (suspected) exposure to other viral communicable diseases; N89.8 Other specified noninflammatory disorders of vagina; R00.0 Tachycardia, unspecified; E11.51 Type 2 diabetes mellitus with diabetic peripheral angiopathy without gangrene; Z79.4 Long term (current) use of insulin; Z79.82 Long term (current) use of aspirin
CPT/HCPCS: 36415; 71045; 80053; 81001; 82550; 83605; 83690; 83735; 85025; 87481; 87635; 87661; 87801; 96361; 96374; 96375; 99284; 99285; A9270; J7120; 81003; 87086

== ENCOUNTER 2024-02-20 18:25 | Outpatient (CLI) | payer OTHER ==
--- NOTE | 2024-02-22 19:24 | Ultrasound Report ---
PROCEDURE: Pelvic w/Transvaginal INDICATIONS: AUB TECHNIQUE: Real-time scanning was performed of the pelvic organs, with image documentation. Additional endovagi nal scanning was necessary due to incomplete visualization of the adnexal and endometrial structures by transabdominal scanning. COMPARISON: Ultrasound pelvis 10/26/2017 FINDINGS: Uterus: Uterus is anteverted and normal in size at 10.0 x 4.8 x 5.7 cm. The endometrium measures 8. 6 mm in combined thickness. There is a poorly visualized soft tissue density at the cervical canal m easuring approximately 23 mm. [Heterogeneous echogenicity is present in left anterior intramural yesenia on measuring 25 x 27 x 25 mm compared to 36 x 30 x 26 mm. Ovaries: The ovaries are poorly visualized. Simple cysts are present on the right measuring 36 x 36 x 39 mm compared to 37 x 28 x 37 mm. Left ovary is not visualized. Other: No pathologic free abdominal or pelvic fluid. IMPRESSION: Limited exam. Endometrial complex is enlarged for postmenopausal with bleeding. Endometrial sampling is recommended to exclude malignancy. Ovaries are poorly evaluated with what appears to be simple cysts on the right. Focus of echogenicity within the cervical canal. It is not well characterized in mass of uncertain et iology cannot be excluded. Reviewed by: Victoria Roberto MD on 02/22/2024 7:22 PM PDT Approved by: Victoria Roberto MD on 02/22/2024 7:22 PM PDT Station ID: [id number]
== END 2024-02-20 18:26 | disposition home or self-care (01) ==
LOC: DI 18:25
PROVIDERS: ATTEND Student in an Organized Health Care Education/Training Program
DX: N83.291 Other ovarian cyst, right side (principal); N85.00 Endometrial hyperplasia, unspecified